=== PATIENT | male | born 1970 | race Caucasian/White ===

== ENCOUNTER 2022-08-29 08:13 | Outpatient (OUT) | payer OTHER, SELFPAY ==
[2022-08-29 08:36] LABS: Basophils Percent Auto 0.4 % (0.2-2.0); Eosinophils Absolute Auto 0.2 10^3/uL (0.0-0.7); Eosinophils Percent Auto 2.9 % (0.9-7.0); Hematocrit 47.4 % (42.0-54.0); Hemoglobin 16.1 g/dL (14.0-18.0); Immature Granulocytes Abs Auto 0.03 10^3/uL (0.00-0.03); Immature Granulocytes Pct Auto 0.4 % (0.0-0.5); Lymphocytes Percent Auto 28.3 % (20.5-60.0); Mean Corpuscular Hemoglobin 30.1 pg (25.9-34.0); Mean Corpuscular Volume 88.6 fL (80.0-94.0); Mean Platelet Volume 9.3 fL (9.5-13.5); Monocytes Absolute Auto 0.6 10^3/uL (0.3-0.8); Neutrophils Absolute Auto 4.3 10^3/uL (1.4-6.5); Platelet Count 199 10^3/uL (150-450); Red Blood Count 5.35 10^6/uL (4.70-6.10); Red Cell Distribution Width 12.8 % (11.0-15.0); White Blood Count 7.2 10^3/uL (4.0-11.0)
[2022-08-29 09:24] LABS: Alanine Aminotransferase 43 U/L (16-63); Albumin Globulin Ratio 1.1; Albumin Level 4.1 g/dL (3.4-5.0); Alkaline Phosphatase 58 U/L (46-116); Anion Gap 12.3; Aspartate Amino Transferase 22 U/L (15-37); BUN Creatinine Ratio 20.6; Bilirubin Total 3.3 mg/dL (0.2-1.0); Carbon Dioxide 30.5 mmol/L (21.0-32.0); Chloride 103 mmol/L (98-107); Chol HDL Ratio 5.4; Cholesterol 226 mg/dL (<=200); Estimated GFR (African America >60 (>=60); Estimated GFR (Non-African Ame >60 (>=60); Globulin 3.6 g/dL; Glucose 113 mg/dL (74-106); HDL Cholesterol 42 mg/dL (40-60); Potassium 3.8 mmol/L (3.5-5.1); Sodium 142 mmol/L (136-145); Total Protein 7.7 g/dL (6.4-8.2); Triglycerides 188 mg/dL (<=150); VLDL CHOLESTEROL 37.6 mg/dL
[2022-08-29 09:39] LABS: Prostate Specific Antigen Scrn 0.39 ng/mL (<=4.00)
== END 2022-08-29 08:14 ==
LOC: LAB 08:18
PROVIDERS: PCP Internal Medicine; Visit Provider Internal Medicine
DX: Z00.00 Encounter for general adult medical examination without abnormal findings (principal); Z12.5 Encounter for screening for malignant neoplasm of prostate
CPT/HCPCS: 36415; 80053; 80061; 85025; G0103

== ENCOUNTER 2022-09-14 12:00 | Outpatient (OUT) | payer OTHER, SELFPAY | END 2022-09-14 12:01 | disposition home or self-care (01) | LOC: PST 09-28 17:58 | PROVIDERS: PCP Internal Medicine | DX: Z01.818 Encounter for other preprocedural examination (principal); Z12.11 Encounter for screening for malignant neoplasm of colon ==

== ENCOUNTER 2022-09-20 07:26 | Day surgery (SDC) | payer OTHER, SELFPAY ==
--- NOTE | 2022-09-20 | OP_ITS ---
OPERATION DATE: ??09/20/2022 PREOPERATIVE DIAGNOSIS:? Colorectal screening. POSTOPERATIVE DIAGNOSIS:? 1.2 cm sigmoid polyp. PROCEDURE:? Colonoscopy to cecum with hot snare polypectomy x1 for sigmoid polyp. SURGEON:? Shantanu Harris M.D. ANESTHESIA:? Monitored anesthesia care. ESTIMATED BLOOD LOSS:? Less than 1 mL. INDICATIONS AND CONSENT:? Patient is a 52-year-old male presents for colorectal screening.? Indications, risks, benefits, alternatives of proceeding with colonoscopy were explained extensively to the patient, including the risks of bleeding, colon perforation or anesthetic complications.? All of his questions were answered.? Informed consent was obtained. PROCEDURE:? Patient brought to the operating room, placed in the left lateral decubitus position.? Monitored anesthesia care was provided.? Rectal exam was performed which showed no masses or blood.? The scope was inserted into the anal canal.? Under direct visualization was advanced.? With the aid of abdominal compression, it was advanced to the cecum where cecal markings were clearly identified.? Upon withdrawal of the scope, mucosal surfaces were carefully examined.? There was noted to be a good prep.? There no mass lesions or inflammatory changes.? No significant diverticulosis.? In the distal sigmoid, there was noted to be a 1.2 cm oblong, pedunculated, erythematous polyp.? This was removed in a piecemeal fashion with hot snare with good hemostasis.? The scope was retroflexed in the anal canal.? There was no significant hemorrhoidal disease.? Scope was then withdrawn.? Patient tolerated procedure well, was sent to recovery room in good condition. f/u colonoscopy likely in 3 years, but will depend on pathology results. CC:? Dandre Wong
[2022-09-20 07:42] VITALS: BP 175/124; PULSE 82; RESP 20; TEMP 36.6; O2SAT 98; BMI 37.1
[2022-09-20] MEDS: LACTATED RINGER'S SOLUTION 1,000 ML 50 ML IV (08:08)
[2022-09-20 09:26] VITALS: BP 112/73; PULSE 69; RESP 16; O2SAT 98
[2022-09-20 09:33] VITALS: BP 126/92; PULSE 71; RESP 16; O2SAT 94
[2022-09-20 09:45] VITALS: BP 138/10; PULSE 69; RESP 20; O2SAT 99
== END 2022-09-20 09:55 | disposition home or self-care (01) ==
PROVIDERS: PCP Internal Medicine; Visit Provider Surgery
PROC: (CPT 45385; principal; 2022-09-20 09:10)
DX: Z12.11 Encounter for screening for malignant neoplasm of colon (principal); D12.5 Benign neoplasm of sigmoid colon; I10 Essential (primary) hypertension; E78.00 Pure hypercholesterolemia, unspecified; G47.33 Obstructive sleep apnea (adult) (pediatric); E66.01 Morbid (severe) obesity due to excess calories; N40.0 Benign prostatic hyperplasia without lower urinary tract symptoms; Z68.39 Body mass index [BMI] 39.0-39.9, adult; Z90.49 Acquired absence of other specified parts of digestive tract
CPT/HCPCS: 45385; 88305; J2704

== ENCOUNTER 2023-03-01 08:09 | Outpatient (OUT) | payer OTHER, SELFPAY ==
[2023-03-01 09:12] LABS: Alanine Aminotransferase 40 U/L (16-63); Chol HDL Ratio 4.6; Cholesterol 190 mg/dL (<=200); HDL Cholesterol 41 mg/dL (40-60); Triglycerides 176 mg/dL (<=150); VLDL CHOLESTEROL 35.2 mg/dL
== END 2023-03-01 08:10 | disposition home or self-care (01) ==
LOC: LAB 08:13
PROVIDERS: PCP Internal Medicine; Visit Provider Internal Medicine
DX: E78.5 Hyperlipidemia, unspecified (principal)
CPT/HCPCS: 36415; 80061; 84460

== ENCOUNTER 2023-12-06 08:33 | Outpatient (OUT) | payer OTHER, SELFPAY ==
--- OUTSIDE RECORDS SUMMARY | 2023-12-06 08:54 | XMS_ITS | CCD ---
Author Organization [facility] Care Team Providers Care Managed Care Coordinator Name Role Phone BERNARDO OROZCO Unavailable Unavailable BALL, BERNARDO Unavailable Unavailable BALL, BERNARDO Unavailable Unavailable BALL, BERNARDO Unavailable Unavailable Ball, Bernardo Unavailable BERNARDO OROZCO Primary Care Physician BERNARDO OROZCO Referring Unavailable Shantanu HARRIS Attending Unavailable NILLShantanu Attending Unavailable Allergies Allergy Classification Reported Allergen(s) Allergy Type Date of Onset Reaction(s) Facility (2 sources) Bee/Wasp/Ant venom; Translations: [Bee Stings] Drug allergy Anaphylaxis (disorder) [facility] [place] (4 sources) patient allergy list reviewed by nurse or physicia Propensity to adverse reactions Comment:Done [employer] Other (1 source) No Known Medication Allergies; Translations: [No Known Medication Allergies] Propensity to adverse reactions (disorder) [facility] Repository Medications Current Medications Medication Drug Class(es) Dates Sig (Normalized) Sig (Original) amLODIPine 5 mg oral tablet (11 sources) Dihydropyridine Calcium Channel Ashely Start: 08-20-2023 take 1 tablet by mouth once daily Amlodipine Active 0 .ROUTE .COMPLEX 90 August 20, 2023 6:00pm Take 1 tablet by mouth once daily Start: 08-20-2023 End: 08-20-2023 take 5 mg by mouth once daily Amlodipine Discontinued 5 MG PO Daily 30 August 20, 2023 12:00am August 20, 2023 6:00pm Start: 08-16-2022 take 1 tablet by rebeca th once daily amLODIPine 5 mg Tab 5 mg = 1 tab(s), Oral, Daily, Refills(s) 0 Start Date: 08/16/22 Status: Ordered benazepril hydrochloride 40 mg oral tablet (11 sources) Angiotensin Converting Enzyme Inhibitor Start: 08-22-2023 take 1 tablet by mouth once daily Benazepril Active 0 .ROUTE .COMPLEX 90 August 22, 2023 12:51pm Take 1 tablet by mouth once daily for 90 days Start: 08-22-2023 End: 08-22-2023 take 40 mg by mouth once daily Benazepril Discontinued 40 MG PO Daily August 22, 2023 12:00am August 22, 2023 12:51pm Start: 08-16-2022 take 1 tablet by rebeca th once daily benazepril 40 mg oral tablet 40 mg = 1 tab(s), Oral, Daily, Refills(s) 0 Start Date: 08/16/22 Status: Ordered [id number] 0.3 ml EPINEPHrine 1 mg/ml auto-injector (4 sources) alpha-Adrenergic Agonist, beta-Adrenergic Agonist, Catecholamine Start: 10-04-2022 EpiPen 2-Anibal 0.3 MG/0.3ML as directed Injection once as needed for bee sting for 30 days Sep, Active hydrocortisone 10 mg/ml / neomycin 3.5 mg/ml / polymyxin b [id number] unt/ml otic suspension (8 sources) Aminoglycoside Antibacterial, Polymyxin-class Antibacterial, Corticosteroid Start: 08-09-2022 Neomycin-Polymyxi n-HC [id number] 4 drops into affected ear Otic qid for 7 days July, Active Completed/Discontinued Medications Medication Drug Class(es) Dates Sig (Normalized) Sig (Original) hydroCHLOROthiazide 25 mg oral tablet (5 sources) Thiazide Diuretic Start: 4 End: 4 take 25 mg by mouth once daily Hydrochlorothiazide Discontinued 25 MG PO Daily October 05, 2023 12:00am October 05, 2023 8:42am Start: 10-04-2022 take 1 tablet by rebeca th every twenty-four hours hydroCHLOROthiazide 25 MG 1 tablet in the morning Orally Once a day for 30 days Sep, Active Problems Active Problems Problem Classification Problem Date Documented Date Episodic/Chronic Allergic reactions (6 sources) Allergy to bee venom; Translations: [Bee allergy status] Episodic Disorders of lipid metabolism (20 sources) Mixed hyperlipidemia; Translations: [Hypercholesterolemia ] Onset: 02-13-2014 Chronic Diverticulosis and diverticulitis (4 sources) Diverticulosis of colon; Translations: [Diverticulosis of colon] Onset: 12-17-2017 Chronic Essential hypertension (20 sources) Essential (primary) hypertension; Translations: [Essential hypertension] Onset: 02-25-2018 Chronic Genitourinary symptoms and ill-defined conditions (1 source) Nocturia Episodic Hyperplasia of prostate (12 sources) Nocturia due to benign prostatic hypertrophy; Translations: [Benign prostatic hyperplasia with lower urinary tract symptoms] Chronic Other aftercare (1 source) 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; Translations: [OTH SKILLED NURSING CURRENT DRUG THERAPY] Onset: 02-28-2018 Episodic Other diseases of kidney and ureters (4 sources) Disorder of kidney and/or ureter; Translations: [Other specified disorders of kidney and ureter] Onset: 04-30-2016 Chronic Other ear and sense organ disorders (1 source) Acute reactive otitis externa, right ear Episodic Other liver diseases (4 sources) Steatosis of liver; Translations: [Fatty (change of) liver, not elsewhere classified] Chronic Other nutritional; endocrine; and metabolic disorders (5 sources) Body mass index 30+ - obesity; Translations: [Body mass index 36.0-36.9, adult] Onset: 05-09-2016 08-29-2022 Chronic Other nutritional; endocrine; and metabolic disorders (5 sources) Morbid obesity; Translations: [Morbid (severe) obesity due to excess calories] Onset: 05-09-2016 08-29-2022 Chronic Other nutritional; endocrine; and metabolic disorders (5 sources) Obesity; Translations: [Obesity, unspecified] 10-05-2023 Chronic Other nutritional; endocrine; and metabolic disorders (4 sources) Obese class II; Translations: [Body mass index 38.0-38.9, adult] Onset: 05-09-2016 Chronic Other nutritional; endocrine; and metabolic disorders (1 source) Obesity, unspecified; Translations: [Obesity, unspecified] 10-05-2023 Chronic Other screening for suspected conditions (not mental disorders or infectious disease) (8 sources) Encounter for screening for malignant neoplasm of prostate; Translations: [Encounter for screening for malignant neoplasm of colon] Onset: 03-10-2016 Episodic Residual codes; unclassified (14 sources) Obstructive sleep apnea syndrome; Translations: [Obstructive sleep apnea (adult) (pediatric)] 08-16-2022 Chronic Residual codes; unclassified (2 sources) Obstructive sleep apnea (adult) (pediatric); Translations: [Obstructive sleep apnea (adult)(pediatric)] Chronic Residual codes; unclassified (1 source) Family history of cancer of colon 08-25-2022 Episodic Unclassified (1 source) Patient encounter status 08-29-2022 Past or Other Problems Problem Classification Problem Date Documented Da te Episodic/Chronic Conditions associated with dizziness or vertigo (4 sources) Benign paroxysmal positional vertigo; Translations: [Benign paroxysmal positional vertigo] Onset: 12-17-2017 Episodic Other diseases of kidney and ureters (4 sources) Acquired renal cystic disease; Translations: [Cyst of kidney, acquired] Onset: 05-09-2016 Episodic Other liver diseases (4 sources) Large liver; Translations: [Hepatomegaly, not elsewhere classified] Onset: 04-30-2016 Episodic Other skin disorders (4 sources) Eruption; Translations: [Rash and other nonspecific skin eruption] Onset: 02-06-2018 Episodic Other skin disorders (4 sources) Sebaceous cyst; Translations: [Sebaceous cyst] Onset: 02-06-2018 Episodic Unclassified (4 sources) Long-term current use of drug therapy; Translations: [Long-term (current) use of other medications] Onset: 08-14-2017 Results Test Name Value Interpretation Reference Range Facil ity Reminderson 08-22-2023 Reminders - From: Malorie Davalos LPN To: N - Clinical; Sent: 10/10/2022 14:42:04 EDT Show up: 08/22/2023 07:00:00 EDT Subject: colonoscopy recall Due Date/Time: 09/21/2023 07:00:00 EDT Reminder/Recall Patient due for surveillance colonoscopy 09/21/2023. Patient notified repeat colonoscopy is due. He declined to schedule at this time. Verbalized he will call back after he determines his work schedule. Normal [facility] Pathology Noteon 09-29-2022 Pathology Note [id number] #1.00CD:127 Normal [facility] Outside Colonoscopyon 2022 Outside Colonoscopy [id number] #1.00CD:127 Normal [facility] Consent for Procedure/Surger yon 08-30-2022 Consent for Procedure/Surgery [id number]# 1.00CD:127 Normal [facility] Ambulatory Visit Summaryon 0 08-29-2022 Ambulatory Visit Summary FLORA JAMES :1970 Visit Date:08/29/2022 Ambulatory Visit Instructions Your Diagnosis Screening for malignant neoplasm of colon Your Care Team Attending Physician - TIA PETE, Shantanu Burr Primary Care Physician - BERNARDO OROZCO DO Referring Physician - BERNARDO OROZCO DO This Is Your Medications List Contact prescribing physician if questions or concerns amlodipine (amLODIPine 5 mg Tab) benazepril (benazepril 40 mg oral tablet) Procedures Performed Cholecystectomy (2016), Colonoscopy (2009), Excision of cyst, Excision of dermatofibroma. Discharge Vitals Heart Rate (Peripheral) 76 Respiratory Rate 16 Blood Pressure 150/98 Height 193 cm Height 76 in Weight 147 kg Weight 323.4 lb BMI 39.46 Medications What How Much When Instructions Unchanged amlodipine (amLODIPine 5 mg Tab) 1 Tablets By Mouth Every day Contact prescribing physician if questions or concerns Unchanged benazepril (benazepril 40 mg oral tablet) 1 Tablets By Mouth Every day Contact prescribing physician if questions or concerns Allergies Bee Stings (Anaphylaxis) Problems Ongoing - Any problem that you are currently receiving treatment for. BMI 39.0-39.9,adult BPH (benign prostatic hyperplasia) Essential hypertension Family history of colon cancer Hypercholesterolemia Morbid obesity EULALIO (obstructive sleep apnea) Screening for malignant neoplasm of colon Normal [facility] HERPES SIMPLEX 1/2 IGMon HSV, IgM I/II Combination 1.34 Ratio Critically high 0.00-0.90 [facility] Comment on above: Result Comment: Nega tive <0.91 Equivocal 0.91 - 1.09 Positive >1.09 Performed By: #### H SVIGM ####[facility] [address] [place] [id number] [place] HERPES SIMPLEX 1/2 IGGon HSV 1 IgG, Type Spec 16.60 index Critically high 0.00-0.90 [facility] Comment on above: Result Comment: Nega tive <0.91 Equivocal 0.91 - 1.09 Positive >1.09 Note: Negative indicates no antibodies detected to HSV-1. Equivocal may suggest early infection. If clinically appropriate, retest at later date. Positive indicates antibodies detected to HSV-1. Performed By: #### H SV IGG ####[facility] [address] [place], [place] [address]Trbthr [place] HSV 2 IgG Type Spec 10.10 index Critically high 0.00-0.90 [facility] Comment on above: Result Comment: Nega tive <0.91 Equivocal 0.91 - 1.09 Positive >1.09 Note: Negative indicates no antibodies detected to HSV-2. Equivocal may suggest early infection. If clinically appropriate, retest at later date. Positive indicates antibodies detected to HSV-2. Performed By: #### H SV IGG ####[facility] Cfbpvs[address]os[address] [place], [place] [address]Zglmnm [place] LIPID PROFILEon 02-25-2018 CHOL-HDL RATIO NORM SEE BELOW Normal [facility] Comment on above: Result Comment: 3.3 - 4.4 LOW RISK 4.4 - 7.1 AVERAGE RISK 7.1 - 11.0 MODERATE RISK >11.0 HIGH RISK Performed By: #### A ST, LIPID, BMP, ALT ####[facility] [address]zven[address] [place], [place] [address]Vpgcoc [place] Cholesterol in HDL mass conc > or = 60 mg/dl - LOW CARDIOVASCULAR RISK <40 mg/dl - HIGH CARDIOVASCULAR RISK Normal [facility] Comment on above: Performed By: #### A ST, LIPID, BMP, ALT ####[facility] [address]sds[address] [place], [place] [address]Vduzxu [place] Cholesterol in HDL mass conc 37 mg/dL Normal [facility] Comment on above: Performed By: #### A ST, LIPID, BMP, ALT ####[facility] Cwydf[address]wp[address] [place], [place] [address]Jpkpiw [place] Cholesterol in LDL mass conc 119.0 mg/dL Normal [facility] Comment on above: Performed By: #### A ST, LIPID, BMP, ALT ####[facility] Pvbsvaledu[address] [place] Cholesterol in LDL mass conc SEE BELOW Normal [facility] Comment on above: Result Comment: <100 mg/dl OPTIMAL 100 - 129 mg/dl NEAR OR ABOVE OPTIMAL 130 - 159 mg/dl BORDERLINE HIGH 160 - 189 mg/dl HIGH >190 mg/dl VERY HIGH Performed By: #### A ST, LIPID, BMP, ALT ####[facility] Hxivkmurvb7118 [address] [place] Cholesterol mass conc 216 mg/dL Critically high <=200 [facility] Comment on above: Performed By: #### A ST, LIPID, BMP, ALT ####[facility] Dwjkhdqlqy[address] [place] Cholesterol.total/Ch olesterol in HDL mass ratio 5.8 {ratio} Normal [facility] Comment on above: Performed By: #### A ST, LIPID, BMP, ALT ####[facility] Wewwwqcaue6342 [address] [place] Triglyceride mass conc 300 mg/dL Critically high <=150 [facility] Comment on above: Performed By: #### A ST, LIPID, BMP, ALT ####[facility] Lrbvhydqsu7971 [address] [place] VLDL CALC 60.0 mg/dL Normal [facility] Comment on above: Performed By: #### A ST, LIPID, BMP, ALT ####[facility] Vidkraizut[address]476 [address] [place] PROF CHEM 8 (BAS METB)on Anion gap 3 molar conc 13.0 mmol/L Normal [facility] Comment on above: Performed By: #### A ST, LIPID, BMP, ALT ####[facility] Maycnijssy[address] [place] Calcium mass conc 9.1 mg/dL Normal 8.4-10.2 [facility] Comment on above: Performed By: #### A ST, LIPID, BMP, ALT ####[facility] Uaouymmjnq[address] [place] Chloride molar conc 101 mmol/L Normal 98-107 [facility] Comment on above: Performed By: #### A ST, LIPID, BMP, ALT ####[facility] Vjexjvjmiq[address] [place] [id number] [place] CO2 molar conc 31.3 mmol/L Critically high 22.0-30.0 [facility] Comment on above: Performed By: #### A ST, LIPID, BMP, ALT ####[facility] Uipluognny17[address] [place] Creatinine mass conc 0.90 mg/dL Normal 0.66-1.25 [facility] Comment on above: Performed By: #### A ST, LIPID, BMP, ALT ####[facility] Mhwgngzbam7334 [address] [place] EGFR-AF PAKISTANI >60 Normal >=60 [facility] Comment on above: Performed By: #### A ST, LIPID, BMP, ALT ####[facility] Jstyqvenyt[address] [place] [id number] [place] EGFR-NON AF PAKISTANI >60 Normal >=60 [facility] Comment on above: Performed By: #### A ST, LIPID, BMP, ALT ####[facility] Vzqauygeip[address] [place] Glucose mass conc 110 mg/dL Critically high 74-106 [facility] Comment on above: Performed By: #### A ST, LIPID, BMP, ALT ####[facility] Ouatmzrufe[address] [place] Potassium molar conc 3.3 mmol/L Critically low 3.4-5.0 [facility] Comment on above: Performed By: #### A ST, LIPID, BMP, ALT ####[facility] Qnqbplxiae1993 [address] [place] Sodium molar conc 142 mmol/L Normal 137-145 [facility] Comment on above: Performed By: #### A ST, LIPID, BMP, ALT ####[facility] Aacpqagkko0209 [address] [place] Urea nitrogen mass conc 12.0 mg/dL Normal 9.0-20.0 [facility] Comment on above: Performed By: #### A ST, LIPID, BMP, ALT ####[facility] Wewecgqrje7245 [address] [place] Urea nitrogen/Creatinine mass ratio 13.3 mg/mg Normal [facility] Comment on above: Performed By: #### A ST, LIPID, BMP, ALT ####[facility] Ripadcuckj[address] [place] SGOTon 02-25-2018 AST enzyme act/vol 35 U/L Normal 17-59 [facility] Comment on above: Performed By: #### A ST, LIPID, BMP, ALT ####[facility] [address] [place] [address] [place] SGPTon 02-25-2018 ALT enzyme act/vol 64 U/L Normal 21-72 [facility] Comment on above: Performed By: #### A ST, LIPID, BMP, ALT ####[facility] Lsgmhfbbuw54[address] [place] UA (CLEAN/CATCH) PUBLIC EMPLOYMENT MEDIATOR/MICRO I F IND.on 02-25-2018 BILIRUBIN Negative Normal NEGATIVE [facility] Comment on above: Performed By: #### U BERNABE UMICRO ####[facility] [address] [place] [address] [place] BLOOD TRACE-LYSED Normal NEGATIVE [facility] Comment on above: Performed By: #### U ACSMICHELLE UMICRO ####[facility] Pdswxuwuoy7562 [address] [place] CLARITY CLEAR Normal [facility] Comment on above: Performed By: #### U ACSMICHELLE UMICRO ####[facility] Gdwbowrcui6499 [address] [place] COLOR LT. YELLOW Normal YELLOW [facility] Comment on above: Performed By: #### U ACSMICHELLE UMICRO ####[facility] Fkmnklnwut[address] [place] GLUCOSE Negative Normal NEGATIVE [facility] Comment on above: Performed By: #### U BERNABE UMICRO ####[facility] Qnolatquoe4937 [address] [place] KETONES Negative Normal NEGATIVE [facility] Comment on above: Performed By: #### U BERNABE UMICRO ####[facility] Lplatjhuiz[address] [place] LEUKOCYTES Negative Normal NEGATIVE [facility] Comment on above: Performed By: #### U BERNABE UMICRO ####[facility] Yzabhilxsx[address] [place] NITRITE Negative Normal NEGATIVE [facility] Comment on above: Performed By: #### U BERNABE UMICRO ####[facility] Zsfwysbfyx[address]331 [address] [place] pH 7.0 Normal 5-9 [facility] Comment on above: Performed By: #### U BERNABE UMICRO ####[facility] Dqfvlyjncx[address]262 [address] [place] PROTEIN TRACE Normal [facility] Comment on above: Performed By: #### U BERNABE UMICRO ####[facility] Oldjdtdojb[address]54 [address] [place] SPEC GRAVITY 1.015 Normal 1.005-<=1.025 [facility] Comment on above: Performed By: #### U BERNABE UMICRO ####[facility] Kustjzwkkc[address] [place] UR MICRO IND INDICATED Normal [facility] Comment on above: Performed By: #### U BERNABE UMICRO ####[facility] Xbqncheddb0[address] [place] UROBILINOGEN 0.2 EU/dl Normal [facility] Comment on above: Performed By: #### U BERNABE UMICRO ####[facility] Sebpcghufu[address] [place] URINE MICROSCOPIC ONLYon BACTERIA TRACE Normal NONE SEEN [facility] Comment on above: Performed By: #### U PERRY KIDDRO ####[facility] [address] [place], [place] [address]Frfpoh [place] CAST NONE SEEN Normal NONE SEEN [facility] Comment on above: Performed By: #### PERRY RORO ####[facility] [address]ks[address] [place], [place] [address]Ugltgj [place] CRYSTALS NONE SEEN Normal NONE SEEN [facility] Comment on above: Performed By: #### U PERRY KIDDRO ####[facility] [address]mt[address]so[address] [place] [id number] CULTURE NOT INDICATED Normal [facility] Comment on above: Performed By: #### PERRY RORO ####[facility] Yxifieehhn[address] [place] [id number] EPITHELIAL CELLS RARE Normal [facility] Comment on above: Performed By: #### PERRY RORO ####[facility] [address]vr[address] [place], [place] [address]Zkzeom [place] INR Coag RelTime (Bld) 2-5 Normal 0-2 [facility] Comment on above: Performed By: #### PERRY RORO ####[facility] K[address]vy[address] [place], [place] [address]Sfnfxa [place] MUCOUS TRACE Normal NONE SEEN [facility] Comment on above: Performed By: #### PERRY RORO ####[facility] [address] [place], [place] [address]Zzedof [place] WBC 2-5 Normal NONE SEEN [facility] Comment on above: Performed By: #### PERRY RORO ####[facility] [address] [place], [place] [address]Kiakif [place] Vital Signs Date Time Vital Sign Value Performing Clinician Facility 10-05-2023 08:42-0400 Body height 195.58 cm [facility] 10-05-2023 08:42-0400 Body mass index (BMI) [Ratio] 37.1 kg/m2 [facility] 10-05-2023 08:42-0400 Body weight 142.03 kg [facility] 10-05-2023 08:42-0400 Diastolic blood pressure 89 mm[Hg] [facility] 10-05-2023 08:42-0400 Heart rate 76 /min [facility] 10-05-2023 08:42-0400 Respiratory rate 12 /min [facility] 10-05-2023 08:42-0400 Systolic blood pressure 139 mm[Hg] [facility] 08-29-2022 13:09-0400 Blood Pressure Location [facility]antanu [facility] [place] 08-29-2022 13:09-0400 Diastolic blood pressure 98 mm[Hg] Shantanu NILL [facility] 08-29-2022 13:09-0400 Heart rate 76 /min Shantanu NILL [facility] 08-29-2022 13:09-0400 Respiratory rate 16 /min Shantanu NILL [facility] 08-29-2022 13:09-0400 Systolic blood pressure 150 mm[Hg] Shantanu NILL [facility] 08-09-2022 09:00-0400 Body height 193.04 cm Bernardo Ball Other [employer] [facility] [place] Other 08-09-2022 09:00-0400 Body mass index (BMI) [Ratio] 39.17 kg/m2 Bernardo Ball Other [employer] [facility] [place] Other 08-09-2022 09:00-0400 Body weight 145.97 kg Bernardo Ball Other [facility] [place] Other 08-09-2022 09:00-0400 Diastolic blood pressure 134 mm[Hg] Bernardo Ball Other [employer] [facility] Other 08-09-2022 09:00-0400 Respiratory rate 12 /min Bernardo Orozco Other [employer] Other 08-09-2022 09:00-0400 Systolic blood pressure 186 mm[Hg] Bernardo Orozco Other [employer] Other Encounters Encounter Date Encounter Type Care Provider Facility Start: 10-05-2023 End: 10-05-2023 ambulatory [facility] Work Phone: Start: 10-05-2023 End: 10-05-2023 Encounter for general adult medical examination without abnormal findings [facility] Start: 10-05-2023 End: 10-05-2023 Patient encounter procedure [facility] Work Phone: Start: 03-02-2023 End: 03-02-2023 ambulatory Bernardo Orozco Other [employer] Other Start: 03-02-2023 Telephone encounter Bernardo Orozco [facility] Start: 10-04-2022 End: 10-04-2022 ambulatory Bernardo Orozco Other [employer] Other Start: 10-04-2022 Telephone encounter Bernardo Orozco [facility] Start: 09-20-2022 End: 09-20-2022 ambulatory Shantanu HARRIS Facility:CD:[id number] Start: 08-30-2022 End: 08-30-2022 ambulatory Bernardo Orozco Other [employer] Other Start: 08-30-2022 Telephone encounter Bernardo Orozco [facility] Start: 08-29-2022 End: 08-29-2022 ambulatory BERNARDO OROZCO Facility: [facility] Start: 08-29-2022 End: 08-29-2022 Patient encounter procedure Shantanu HARRIS [facility] [place] Start: 08-09-2022 End: 08-09-2022 ambulatory Bernardo Orozco Other [employer] Other Start: 08-09-2022 Encounter for chanelle l adult medical examination without abnormal findings Bernardo Orozco [facility] Start: 08-09-2022 Periodic preventive med est patient 40-64yrs Bernardo Orozco [facility] Start: 08-09-2022 Telephone encounter eBrnardo Orozco [facility] Start: 06-09-2021 Adult health examination Bernardo Orozco Other [employer] Other Start: 02-25-2018 End: 02-26-2018 Patient encounter procedure BERNARDO OROZCO Facility:H1 Procedures Date Procedure Procedure Detail Performing Clinician Start: 03-12-2016 Cholecystectomy Shantanu JOSEPHL Start: 01-06-2015 General examination of patient Bernardo Orozco Other Start: 03-12-2009 Colonoscopy Shantanu DICKERSON LL Depression screening Erica Orozco Other Excision of cyst Shantanu JOSEPH L Comment on above: posterior neck Excision of dermatofibroma M ichmiriam JOSEPHL Comment on above: left upper extremity , shoulder, right thigh Plan of Treatment Date Care Activity Detail Author Comprehensive metabo lic 2000 panel - Serum or Plasma [facility] enter [facility] Immunizations Immunization Date Immunization Notes Care Provider Erwin lennon 06-27-2020 COVID-19 Vaccine Pfi zer - Documentation Purposes Only Bernardo Orozco Other [facility] 06-06-2020 COVID-19 Vaccine Pfi zer - Documentation Purposes Only Bernardo Orozco Other [facility] Payers Date Payer Category Payer Unknown [id number] 1972 Unknown [id number] 1972 Unknown [id number] 1972 Unknown [id number] 1959 Unknown [id number] [facility] Health [facility] [employer] [id number] Unknown [id number] Social History Date Type Detail Facility Sex Assigned At [facility] Start: 08-29-2022 Tobacco smoking status Never s moked tobacco (finding) [facility] Tobacco smoking status Never [facility] Start: 1970 Sex Assigned At Male F [facility] Functional Status Date Assessment Result Facility 08-29-2022 Functional Status N/A [facility] Clinical Notes 08-09-2022 to 10-04-2022 Note Date & Type Note Facility 10-04-2022 Evaluation note Encounter Date Diagnosis Assessment Notes Sep, Bee sting allergy (ICD-10 - Z91.030) [facility] Other 07-26-2023 Evaluation note* Encounter Date Diagnosis Assessment Notes Treatment Notes Treatment Clinical Notes Sep, Primary hypertension (ICD-10 - I10) [facility] Other 06-20-2023 NoteChief Complaint consultation for screening colonoscopy [facility] Staff 52 year old male presents on consultation from Dr. Orozco for screening colonoscopy. Denies abdominalor rectal pain. No rectal bleeding or change in bowel habits. Denies nausea or vomiting. No unexplained weight loss. Last colonoscopy completed 08/2009-normal. Father with history of colon cancer, diag nosed age late 40's. History of Present Illness 52 yo male with h/o htn, hypercholesterolemia, bph, EULALIO, referred for colorectal screening; denies change in bms or blood in stools, no abd complaints; abd operations significant for cholecystectomy;last colonoscopy 2009, wnl; no asa or NSAID use; no SBE prophylaxis; fmhx of colon cancer in patient's father, dx before age 50, no fmhx of IBD; no tobacco use. Review of Systems PHQ Score Initial Depression Screen Score: 0 ROS - Provider Constitutional: no fever, no sweats, no weight loss. Eyes: no glasses, no blurred vision, no visual loss. ENMT: no dentures, no hoarseness, no swallowing difficulties, no hearing loss, no ear infection(s),no nose bleeds. Cardiovascular: normal blood pressure, no chest pain, regular heartbeat, no heart murmur. Respiratory: no shortness of breath, no cough, no asthma, no wheezing. Gastrointestinal: no nausea, no vomiting, no diarrhea, no constipation, no blood in stool, no change in bowel habits, no abdominal pain, no hepatitis. Genitourinary: no kidney stones, no urine infection, no dysuria. Musculoskeletal: no pain, no weakness. Skin: no changing moles, no rash, no skin lumps. Neurologic: no seizures, no epilepsy, no headache. Psychiatric: no emotional or psychiatric problem. Heme/Lymph: no bleeding problems, no anemia, no blood clots, no transfusions. Allergy/Immunologic: no swollen lymph nodes/glands, no IV drug abuse. Other: Additional ROS info: Except as noted in the above Review of Systems and in the History of Present Illness, all other systems have been reviewed and are negative or noncontributory. Physical Exam Vitals & Measurements HR: 76(Peripheral) RR: 16 BP: 150/98 HT: 76 in HT: 193 cm WT: 147 kg WT: 323.4 lb BMI: 39.46 HEENT: normal conjunctiva, sclera clear, no scleral icterus, EOM intact, PERRLA, oral mucosa moist without lesions. Neck: trachea midline, no mass, symmetric, no thyromegaly or nodules, no adenopathy Respiratory: lungs CTA, respirations non labored. Cardiovascular: regular rate and rhythm, no murmur, no pedal edema or varicosities. Gastrointestinal: obese, soft, non distended, no tenderness, no masses, no palpable hernias, diastasis recti no, no hepatosplenomegaly; normal bs Lymphatic: no cervical adenopathy, no supraclavicular adenopathy. Musculoskeletal: normal gait, digits and nails without infection, nodes, cyanosis, clubbing. Skin: no rashes, no lesions, no ulcers, no subcutaneous nodules, induration. Psychiatric/Neuro: oriented to time, place, person, judgement normal, affect appropriate for age, insight intact, no focal deficits. Tests: review of old records completed, Discussed surgical options, risks, and possible complications with patient. Assessment/Plan 1. Screening for malignant neoplasm of colon (Z12.11: Encounter for screening for malignant neoplasm of colon) plan colonoscopy under anesthesia, informed consent obtained. Follow-up No qualifying data available Problem List/Past Medical History Ongoing BMI 39.0-39.9,adult BPH (benign prostatic hyperplasia) Essential hypertension Family history of colon cancer Hypercholesterolemia Morbid obesity EULALIO (obstructive sleep apnea) Screening for malignant neoplasm of colon Historical No qualifying data Procedure/Surgical History Cholecystectomy (2016), Colonoscopy (2009), Excision of cyst, Excision of dermatofibroma. Medications amLODIPine 5 mg Tab, 5 mg= 1 tab(s), Oral, Daily benazepril 40 mg oral tablet, 40 mg= 1 tab(s), Oral, Daily Allergies Bee Stings (Anaphylaxis) Social History Alcohol - Denies Alcohol Use, 08/29/2022 Substance Abuse - Denies Substance Abuse, 08/29/2022 Tobacco Never (less than 100 in lifetime) Tobacco Use:. Never Smokeless Tobacco Use:., 08/29/2022 Family History Hypertension: Mother. Primary malignant neoplasm of colon: Father[facility]:Result Comment: Electronically Signed By: TIA PETE, Shantanu Lackey\Date and Time Signed: 08/29/22 13:49 [id number] Evaluation note* Encounter Date Diagnosis Assessment Notes Treatment Notes Treatment Clinical Notes July, Primary hypertension (ICD-10 - I10) This patient is instructed to consume a healthy, low-fat, low-salt diet. They are also encouraged to continue exercise to achieve/maintain a normal BMI. Patient is instructed on home BP measurements: - rest for 5 minutes w/o talking- positioned w/ feet on floor and arm supported- average best 2/3 readings w/ goal < 135-85 July, Wellness examination (ICD-10 - Z00.00) Healthy diet and exercise. Reviewed age-appropriate preventive testing recommended. July, Elevated cholesterol (ICD-10 - E78.00) Instructed on diet and exercise with continued statin therapy.Discussed the beneficial effects of lowering cholesterol in reducing the risk for cerebrovascular and cardiovascular disease. July, EULALIO (obstructive sleep apnea) (ICD-10 - G47.33) This patient is aware of the benefits associated with EULALIO: With continued use, the patient reduces the risk for WA, CVA, HTN, cardiac dysrhythmias and sudden cardiac deaths.The patient is also aware of the association between EULALIO and morning headaches, daytime somnolence, fatigue and obesity, which also has been improved with continued use.The patient is compliant with treatment, wearing the equipment every night for greater than 4 hours.The patient is instructed to continue use of the CPAP for EULALIO treatment. July, Benign prostatic hyperplasia with lower urinary tract symptoms (ICD-10 - N40.1) Symptoms tolerable July, Nocturia (ICD-10 - R35.1) July, Screening PSA (prostate specific antigen) (ICD-10 - Z12.5) Yearly RUBI and PSA July, Screening for colon cancer (ICD-10 - Z12.11) Refer for screening colonoscopy [facility] Other 05-31-2023 Evaluation note* Encounter Date Diagnosis Assessment Notes Treatment Notes Treatment Clinical Notes July, Acute reactive otitis externa of right ear (ICD-10 - H60.551) [facility] Other 05-31-2023 Evaluation note* Encounter Date Diagnosis Assessment Notes Treatment Notes Treatment Clinical Notes July, Primary hypertension (ICD-10 - I10) [facility] Other Evaluation + Plan note No data available for this section [facility] Evaluation noteNo InformationNort [place] Other Evaluation note* Diagnosis Onset Date Resolution Status Benign prostatic hyperplasia with lower urinary tract symptoms acute Hypercholesterolemia acute Hypertension acute Obesity acute EULALIO (obstructive sleep apnea) acute Screening PSA (prostate specific antigen) noneactive Wellness examination noneact [facility] Work Phone: History general Narrative - Reported* Type Description Date Medical History Primary hypertension Medical History Benign prostatic hyp erplasia with lower urinary tract symptoms Medical History Obstructive sleep apnea Medical History Elevated cholesterol Surgical History COLONOSCOPY 2009 Surgical History CHOLECYSTECTOMY 2017 Hospitalization History SEE SURGICAL HX [facility] Other History general Narrative - Reported* Type Description Date Medical History Primary hypertension Medical History Benign prostatic hyp erplasia with lower urinary tract symptoms Medical History Obstructive sleep apnea Medical History Elevated cholesterol Surgical History COLONOSCOPY 2009 Surgical History CHOLECYSTECTOMY 2017 Surgical History Colonoscopy w/ polypectomy, rep eat 3 yrs 09/2022 Hospitalization History SEE SURGICAL HX [facility] Other Hospital Discharge instructions No data available for this section [facility] Progress note No data available for this section [facility] Reason for referral (narrative)* Reason *FU 08/16 Referral for screening colonoscopy Diagnosis 1 Screening for colon cancer (Z12.11) Referral Organization [facility] Referring Provider First Name Bernardo Referring Provider Last Name Ernesto Referring Provider Specialty Internal Me dicveronique Referred Organization [facility] Referred Provider Shantanu Harris Referred Address [address] [place], [place],[address] Referred Provider Specialty Surgery Referral Priority Routine General Notes Referral for screeni ng colonoscopy in an asymptomatic, high risk patient. He denies change in appetite, weight or bowel habits. He denies N/V, dysphagia, melena or hematochezia. Isabel Krishnamurthy 08/09/2022 02:38:29 PM >received today, attachments made, referral faxed Clinical Notes F: [id number] [facility] Other Summary Purpose Family History Relationship Condition Age at Onset Recorded Date/T benedicto mother Hypertension Unknown High blood cholesterol Unknown Advance Directives Advance Directive Response Recorded Date/ Time Advance Directives No October 04 8:28am Chief Complaint and Reason for Visit Chief Complaint wellness Reason for Visit Benign prostatic hyp erplasia with lower urinary tract symptoms Hypercholesterolemia Hypertension Obesity EULALIO (obstructive sleep apnea) Screening PSA (prostate specific antigen) Wellness examination Additional Source Comments (unrecognized sect ion and content) No Status Records FoundNo Status Records Found INFORMATION SOURCE (unrecogn ized section and content) DATE CREATED AUTHOR 03/03/2018 [facility] DATE CREATED AUTHOR AUTHOR'S ORGANIZ ATION 08/23/2023 [facility] REASON FOR VISIT (unrecogniz ed section and content) wellnessATBRefillLab Results No InformationNo InformationBP readings/EPI penslabs Patient Care team informatio n (unrecognized section and content) Team Status: Active Member Role Status Dates Bernardo Orozco , Primary Care Provider Active Team Status: Inactive Member Role Status Dates Bernardo Orozco DO Primary Care Provide r, Attending Provider Active Start: October 05, 2023 End: October 05, 2023 Goals (unrecognized section and content) Goals may be documented in a n alternate section FOR RECORDS PERTAINING TO PATIENTS WHO ARE OR HAVE BEEN ENROLLED IN A CHEMICAL DEPENDENCY/SUBSTANCEABUSE PROGRAM, SOME INFORMATION MAY BE OMITTED. This clinical summary was aggregated from multiple sources. Caution should be exercised in using it in the provision of clinical care. This summary normalizes information from multiple sources, and as a consequence, information in this document may materially change the coding, format and clinical context of patient data. In addition, data may be omitted in some cases. CLINICAL DECISIONS SHOULD BE BASED ON THE PRIMARY CLINICAL RECORDS. [facility] [employer] [facility]. provides no warranty or guarantee of the accuracy or completeness of information in this document.
[2023-12-06 09:28] LABS: Basophils Percent Auto 0.3 % (0.2-2.0); Eosinophils Absolute Auto 0.2 10^3/uL (0.0-0.7); Eosinophils Percent Auto 2.2 % (0.9-7.0); Hematocrit 46.9 % (42.0-54.0); Immature Granulocytes Abs Auto 0.02 10^3/uL (0.00-0.03); Immature Granulocytes Pct Auto 0.3 % (0.0-0.5); Lymphocytes Absolute Auto 2.1 10^3/uL (1.2-3.8); Mean Corpuscular HGB Conc 34.1 g/dL (29.9-35.2); Mean Corpuscular Hemoglobin 30.8 pg (25.9-34.0); Mean Corpuscular Volume 90.2 fL (80.0-94.0); Monocytes Absolute Auto 0.7 10^3/uL (0.3-0.8); Monocytes Percent Auto 8.9 % (1.7-12.0); Neutrophils Absolute Auto 4.6 10^3/uL (1.4-6.5); Neutrophils Percent Auto 60.3 % (43.0-75.0); Platelet Count 221 10^3/uL (150-450); Red Cell Distribution Width 12.7 % (11.0-15.0); White Blood Count 7.6 10^3/uL (4.0-11.0)
[2023-12-06 10:32] LABS: Alanine Aminotransferase 34 U/L (16-63); Albumin Globulin Ratio 1.2; Albumin Level 4.2 g/dL (3.4-5.0); Alkaline Phosphatase 55 U/L (46-116); Anion Gap 7.2; Aspartate Amino Transferase 25 U/L (15-37); BUN Creatinine Ratio 22.2; Bilirubin Total 5.4 mg/dL (0.2-1.0); Calcium 9.5 mg/dL (8.5-10.1); Carbon Dioxide 34.1 mmol/L (21.0-32.0); Chloride 100 mmol/L (98-107); Cholesterol 189 mg/dL (<=200); Estimated GFR (African America >60 (>=60); Estimated GFR (Non-African Ame >60 (>=60); Globulin 3.4 g/dL; Glucose 104 mg/dL (74-106); HDL Cholesterol 44 mg/dL (40-60); Potassium 3.3 mmol/L (3.5-5.1); Sodium 138 mmol/L (136-145); Total Protein 7.6 g/dL (6.4-8.2); Triglycerides 117 mg/dL (<=150); VLDL CHOLESTEROL 23.4 mg/dL
[2023-12-06 10:46] LABS: Prostate Specific Antigen Scrn 0.43 ng/mL (<=4.00)
[2023-12-06 11:28] LABS: Chol HDL Ratio 4.3
== END 2023-12-06 08:34 | disposition home or self-care (01) ==
LOC: LAB 08:37
PROVIDERS: PCP Internal Medicine; Visit Provider Internal Medicine
DX: Z00.00 Encounter for general adult medical examination without abnormal findings (principal)
CPT/HCPCS: 36415; 80053; 80061; 85025; G0103

== ENCOUNTER 2024-06-10 13:05 | Outpatient (OUT) | payer OTHER, SELFPAY | END 2024-06-10 13:06 | disposition home or self-care (01) | LOC: PST 13:06 | PROVIDERS: PCP Internal Medicine; Visit Provider Surgery | DX: Z01.818 Encounter for other preprocedural examination (principal); Z86.0101 Personal history of adenomatous and serrated colon polyps ==

== ENCOUNTER 2024-06-18 06:29 | Day surgery (SDC) | payer OTHER, SELFPAY ==
--- NOTE | 2024-06-18 | OP_ITS ---
OPERATION DATE: 06/18/2024 PREOPERATIVE DIAGNOSIS: Personal history of colon polyps, family history of colon cancer. POSTOPERATIVE DIAGNOSIS: Sigmoid polyps x2; 5 mm proximal sigmoid polyp and 7 mm distal sigmoid polyp. PROCEDURE: Colonoscopy to cecum with cold snare polypectomy x1 for proximal sigmoid polyp, and hot snare polypectomy x1 for distal sigmoid polyp. Proximal polyp was 5 mm, distal polyp 7 mm. SURGEON: Shantanu Harris M.D. ANESTHESIA: Monitored anesthesia care. INDICATIONS AND CONSENT: Patient is a 54-year-old male with a personal history of villoglandular polyp removed in September of 2022, also a family history of colon cancer in his father, diagnosed in his 40s. Indications, risks, benefits, alternatives of proceeding with surveillance colonoscopy were explained extensively to the patient, including the risks of bleeding, colon perforation or anesthetic complications. All of his questions were answered. Informed consent was obtained. PROCEDURE: Patient brought to the operating room, placed in the left lateral decubitus position. Monitored anesthesia care was provided. Rectal exam was performed which showed no masses or blood. The scope was inserted into the anal canal. Under direct visualization was advanced. It was advanced to the cecum where cecal markings were clearly identified. There was noted to be a good prep. Upon withdrawal of the scope, mucosal surfaces were carefully examined. There were no mass lesions or inflammatory changes. No significant diverticulosis. In the proximal sigmoid colon, there was noted to be a 5 mm sessile polyp that was removed with cold snare with good hemostasis. In the distal sigmoid, there was noted to be a lobulated, 7 mm sessile polyp that was removed with hot snare with good hemostasis. The scope was retroflexed in the anal canal. There was no significant hemorrhoidal disease. There were noted to be some prominent rectal veins. Scope was then withdrawn. Patient tolerated procedure well, was sent to recovery room in good condition. Follow up colonoscopy likely in 1-3 years, depending on pathology report. CC: Dr. Ernesto KEMP
--- OUTSIDE RECORDS SUMMARY | 2024-06-18 06:31 | XMS_ITS | CCD ---
Author Organization [facility] Care Team Providers Care Ep Specialist Name Role Phone BERNARDO PONCE Unavailable Unavailable BALL, BERNARDO Unavailable Unavailable BALL, BERNARDO Unavailable Unavailable BALL, BERNARDO Unavailable Unavailable Ball, Bernardo Unavailable BERNARDO PONCE Primary Care Physician Shantanu HARRIS Attending Unavailable Allergies Allergy Classification Reported Allergen(s) Allergy Type Date of Onset Reaction(s) Facility (3 sources) Bee/Wasp/Ant venom; Translations: [Bee Stings] Drug allergy Anaphylaxis (disorder) [facility] [place] (4 sources) patient allergy list reviewed by nurse or physicia Propensity to adverse reactions Comment:Done [facility] Other (1 source) No Known Medication Allergies; Translations: [No Known Medication Allergies] Propensity to adverse reactions (disorder) [facility] Repository Medications Current Medications Medication Drug Class(es) Dates Sig (Normalized) Sig (Original) amLODIPine 5 mg oral tablet (12 sources) Dihydropyridine Calcium Channel Ashely Start: 08-20-2023 take 1 tablet by mouth once daily Amlodipine Active 0 .ROUTE .COMPLEX August 20, 2023 6:00pm Take 1 tablet by mouth once daily Start: 08-16-2022 End: 08-20-2023 take 5 mg by mouth once daily Amlodipine Discontinued 5 MG PO Daily August 20, 2023 12:00am August 20, 2023 6:00pm benazepril hydrochloride 40 mg oral tablet (12 sources) Angiotensin Converting Enzyme Inhibitor Start: 08-22-2023 take 1 tablet by mouth once daily Benazepril Active 0 .ROUTE .COMPLEX August 22, 2023 12:51pm Take 1 tablet by mouth once daily for 90 days Start: 08-16-2022 End: 08-22-2023 take 40 mg by mouth once daily Benazepril Discontinued 40 MG PO Daily August 22, 2023 12:00am August 22, 2023 12:51pm [id number] 0.3 ml EPINEPHrine 1 mg/ml auto-injector (4 sources) alpha-Adrenergic Agonist, beta-Adrenergic Agonist, Catecholamine Start: 10-04-2022 EpiPen 2-Anibal 0.3 MG/0.3ML as directed Injection once as needed for bee sting for 30 days Sep, Active hydrocortisone 10 mg/ml / neomycin 3.5 mg/ml / polymyxin b [id number] unt/ml otic suspension (8 sources) Aminoglycoside Antibacterial, Polymyxin-class Antibacterial, Corticosteroid Start: 08-09-2022 Neomycin-Polymyxi n-HC [id number] 4 drops into affected ear Otic qid [...] (1 source) Nocturia Episodic Hyperplasia of prostate (13 sources) Nocturia due to benign prostatic hypertrophy; Translations: [Benign prostatic hyperplasia with lower urinary tract symptoms] Chronic Other aftercare (1 source) Other fci (current) drug therapy; Translations: [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] Onset: 02-28-2018 Episodic Other and unspecified benign neoplasm (2 sources) History of polyp of colon; Translations: [Personal history of adenomatous and serrated colon polyps] Onset: 01-30-2024 Episodic Other diseases of kidney and ureters (4 sources) Disorder of kidney and/or ureter; Translations: [Other specified disorders of kidney and ureter] Onset: 04-30-2016 Chronic Other ear and sense organ disorders (1 source) Acute reactive otitis externa, right ear Episodic Other liver diseases (5 sources) Steatosis of liver; Translations: [Fatty (change of) liver, not elsewhere classified] 01-15-2024 Chronic Other nutritional; endocrine; and metabolic disorders (6 sources) Body mass index 30+ - obesity; Translations: [Body mass index 36.0-36.9, adult] Onset: 05-09-2016 08-29-2022 Chronic Other nutritional; endocrine; and metabolic disorders (6 sources) Morbid obesity; Translations: [Morbid (severe) obesity [...] colon] Onset: 03-10-2016 Episodic Residual codes; unclassified (15 sources) Obstructive sleep apnea syndrome; Translations: [Obstructive sleep apnea (adult) (pediatric)] 08-16-2022 Chronic Residual codes; unclassified (2 sources) Obstructive sleep apnea (adult) (pediatric); Translations: [Obstructive sleep apnea (adult)(pediatric)] Chronic Residual codes; unclassified (2 sources) Family history of cancer of colon 08-25-2022 Episodic Residual codes; unclassified (1 source) Family history of malignant neoplasm of digestive organ; Translations: [Family history of malignant neoplasm of digestive organs] Onset: 01-30-2024 Episodic Unclassified (2 sources) Patient encounter status 08-29-2022 Past or Other [...] Name Value Interpretation Reference Range Facil ity Ambulatory Visit Summaryon 1 03-31-2023 Ambulatory Visit Summary Ambulatory Visit Summary FLORA JAMES :1970 Visit Date:01/30/2024 Ambulatory Visit Instructions Your Diagnosis Personal history of adenomatous and serrated colon polyps Family history of colon cancer in father Your Care Team Attending Physician - Shantanu HARRIS MD Primary Care Physician - ERNESTO VICTOR BERNARDO This Is Your Medications List Contact prescribing physician if questions or concerns amlodipine (amLODIPine 5 mg Tab) benazepril (benazepril 40 mg oral tablet) Procedures Performed Colonoscopy (09/20/2022), Cholecystectomy (2016), Colonoscopy (2009), Excision of cyst, Excision of dermatofibroma. Discharge Vitals Heart Rate (Peripheral) 76 Respiratory Rate 16 Blood Pressure 126/86 Height 193 cm Height 76 in Weight 142 kg Weight 313.056 lb BMI 38.12 Medications What How Much When Instructions Unchanged amlodipine (amLODIPine 5 mg Tab) 1 Tablets By Mouth Every day Contact prescribing physician if questions or concerns Unchanged benazepril (benazepril 40 mg oral tablet) 1 Tablets By Mouth Every day Contact prescribing physician if questions or concerns Allergies Bee Stings (Anaphylaxis) Problems Ongoing - Any problem that you are currently receiving treatment for. BMI 38.0-38.9,adult BPH (benign prostatic hyperplasia) Essential hypertension Family history of colon cancer in father Hypercholesterolemia Morbid obesity EULALIO (obstructive sleep apnea) Personal history of adenomatous and serrated colon polyps Screening for malignant neoplasm of colon Steatosis of liver Patient Survey You may receive a survey via text or e-mail asking about your office visit. Please share your experience with us by completing your survey. We appreciate your feedback and thank you for choosing us for your care. Normal [facility] HERPES SIMPLEX 1/2 IGMon HSV, IgM I/II Combination 1.34 Ratio Critically high 0.00-0.90 [facility] Comment on above: Result Comment: Nega tive <0.91 Equivocal 0.91 - 1.09 Positive >1.09 Performed By: #### H SVIGM ####[facility] [address] [place] [address] HERPES SIMPLEX 1/2 IGGon HSV 1 IgG, Type Spec 16.60 index Critically high 0.00-0.90 [facility] Comment on above: Result Comment: Nega tive <0.91 Equivocal 0.91 - 1.09 Positive >1.09 Note: Negative indicates no antibodies detected to HSV-1. Equivocal may suggest early infection. If clinically appropriate, retest at later date. Positive indicates antibodies detected to HSV-1. Performed By: #### H SV IGG ####[facility] [address] [place] [address] HSV 2 IgG Type Spec 10.10 index Critically high 0.00-0.90 [facility] Comment on above: Result Comment: Nega tive <0.91 Equivocal 0.91 - 1.09 Positive >1.09 Note: Negative indicates no antibodies detected to HSV-2. Equivocal may suggest early infection. If clinically appropriate, retest at later date. Positive indicates antibodies detected to HSV-2. Performed By: #### H SV IGG ####[facility] [address] [place] [address] LIPID PROFILEon 02-25-2018 CHOL-HDL RATIO NORM SEE BELOW Normal [facility] Comment on above: Result Comment: 3.3 - 4.4 LOW RISK 4.4 - 7.1 AVERAGE RISK 7.1 - 11.0 MODERATE RISK >11.0 HIGH RISK Performed By: #### A ST, LIPID, BMP, ALT ####[facility] [address] [place], [place] [address]Ibfiqz [place] Cholesterol in HDL mass conc > or = 60 mg/dl - LOW CARDIOVASCULAR RISK <40 mg/dl - HIGH CARDIOVASCULAR RISK Normal [facility] Comment on above: Performed By: #### A ST, LIPID, BMP, ALT ####[facility] [address] [place], [place] [address]Stpmtc [place] Cholesterol in HDL mass conc 37 mg/dL Normal [facility] Comment on above: Performed By: #### A ST, LIPID, BMP, ALT ####[facility] [address] [place], [place] [address]Kdyyhl [place] Cholesterol in LDL mass conc 119.0 mg/dL Normal [facility] Comment on above: Performed By: #### A ST, LIPID, BMP, ALT ####[facility] [address] [place], [place] [address]Mdziit [place] Cholesterol in LDL mass conc SEE BELOW Normal [facility] Comment on above: Result Comment: <100 mg/dl OPTIMAL 100 - 129 mg/dl NEAR OR ABOVE OPTIMAL 130 - 159 mg/dl BORDERLINE HIGH 160 - 189 mg/dl HIGH >190 mg/dl VERY HIGH Performed By: #### A ST, LIPID, BMP, ALT ####[facility] [address] [place], [place] [address]Vexaig [place] Cholesterol mass conc 216 mg/dL Critically high <=200 [facility] Comment on above: Performed By: #### A ST, LIPID, BMP, ALT ####[facility] [address] [place], [place] [address]Xvixuj [place] Cholesterol.total/C holesterol in HDL mass ratio 5.8 {ratio} Normal [facility] Comment on above: Performed By: #### A ST, LIPID, BMP, ALT ####[facility] [address] [place], [place] [address]Vqsprd [place] Triglyceride mass conc 300 mg/dL Critically high <=150 [facility] Comment on above: Performed By: #### A ST, LIPID, BMP, ALT ####[facility] Akkv[address] [place] VLDL CALC 60.0 mg/dL Normal [facility] Comment on above: Performed By: #### A ST, LIPID, BMP, ALT ####[facility] Y[address] [place] PROF CHEM 8 (BAS METB)on Anion gap 3 molar conc 13.0 mmol/L Normal [facility] Comment on above: Performed By: #### A ST, LIPID, BMP, ALT ####[facility] [address] [place] [address] [place] Calcium mass conc 9.1 mg/dL Normal 8.4-10.2 The [facility] Comment on above: Performed By: #### A ST, LIPID, BMP, ALT ####[facility] [address] [place] [address] [place] Chloride molar conc 101 mmol/L Normal 98-107 [facility] Comment on above: Performed By: #### A ST, LIPID, BMP, ALT ####[facility] [address] [place] [address] [place] CO2 molar conc 31.3 mmol/L Critically high 22.0-30.0 [facility] Comment on above: Performed By: #### A ST, LIPID, BMP, ALT ####[facility] Jqyfbviuxd[address] [place] Creatinine mass conc 0.90 mg/dL Normal 0.66-1.25 [facility] Comment on above: Performed By: #### A ST, LIPID, BMP, ALT ####[facility] D[address]pr[address] [place] EGFR-AF MALAYSIAN >60 Normal >=60 [facility] Comment on above: Performed By: #### A ST, LIPID, BMP, ALT ####[facility] B[address]ucot[address] [place] EGFR-NON AF MALAYSIAN >60 Normal >=60 [facility] Comment on above: Performed By: #### A ST, LIPID, BMP, ALT ####[facility] [address] [place] [id number] [place] Glucose mass conc 110 mg/dL Critically high 74-106 [facility] Comment on above: Performed By: #### A ST, LIPID, BMP, ALT ####[facility] Fmrd[address]ixb[address] [place] Potassium molar conc 3.3 mmol/L Critically low 3.4-5.0 [facility] Comment on above: Performed By: #### A ST, LIPID, BMP, ALT ####[facility] Mxjpfxz[address] [place] Sodium molar conc 142 mmol/L Normal 137-145 [facility] Comment on above: Performed By: #### A ST, LIPID, BMP, ALT ####[facility] Zeq[address]ixi[address] [place] Urea nitrogen mass conc 12.0 mg/dL Normal 9.0-20.0 [facility] Comment on above: Performed By: #### A ST, LIPID, BMP, ALT ####[facility] Esawjfvoct[address] [place] Urea nitrogen/Creatinine mass ratio 13.3 mg/mg Normal [facility] Comment on above: Performed By: #### A ST, LIPID, BMP, ALT ####[facility] [address] [place] [id number] [place] SGOTon 02-25-2018 AST enzyme act/vol 35 U/L Normal 17-59 [facility] Comment on above: Performed By: #### A ST, LIPID, BMP, ALT ####[facility] [address] [place] [id number] [place] SGPTon 02-25-2018 ALT enzyme act/vol 64 U/L Normal 21-72 [facility] Comment on above: Performed By: #### A ST, LIPID, BMP, ALT ####[facility] [address]nr[address] [place] [id number] [place] UA (CLEAN/CATCH) YEAST DISTILLER/MICRO I F IND.on 02-25-2018 BILIRUBIN Negative Normal NEGATIVE [facility] Comment on above: Performed By: #### U PERRY KIDDRO ####[facility] S[address]lj[address] [place] BLOOD TRACE-LYSED Normal NEGATIVE [facility] Comment on above: Performed By: #### U EH KIDDICRO ####[facility] X[address] [place] CLARITY CLEAR Normal [facility] Comment on above: Performed By: #### PERRY RORO ####[facility] Y[address]hl[address] [place] COLOR LT. YELLOW Normal YELLOW [facility] Comment on above: Performed By: #### PERRY RORO ####[facility] G[address]xi[address]bt[address] [place] GLUCOSE Negative Normal NEGATIVE [facility] Comment on above: Performed By: #### PERRY RORO ####[facility] Bl[address]old[address]kg[address] [place] KETONES Negative Normal NEGATIVE [facility] Comment on above: Performed By: #### PERRY RORO ####[facility] Tqdojoyfot[address] [place] LEUKOCYTES Negative Normal NEGATIVE [facility] Comment on above: Performed By: #### EH ROICRO ####[facility] R[address]opjx[address]xw[address] [place] NITRITE Negative Normal NEGATIVE [facility] Comment on above: Performed By: #### PERRY RORO ####[facility] Iytotjwcnu[address] [place] pH 7.0 Normal 5-9 [facility] Comment on above: Performed By: #### PERRY RORO ####[facility] Ahiew[address]khp[address] [place] PROTEIN TRACE Normal [facility] Comment on above: Performed By: #### PERRY RORO ####[facility] Fabjimnshx[address] [place] SPEC GRAVITY 1.015 Normal 1.005-<=1.025 [facility] Comment on above: Performed By: #### EH ROICRO ####[facility] Iq[address] [place] UR MICRO IND INDICATED Normal [facility] Comment on above: Performed By: #### AMIRA RO ####[facility] X[address]prp[address] [place] UROBILINOGEN 0.2 EU/dl Normal [facility] Comment on above: Performed By: #### AMIRA RO ####[facility] [address]ul[address] [place] URINE MICROSCOPIC ONLYon BACTERIA TRACE Normal NONE SEEN [facility] Comment on above: Performed By: #### PERRY RORO ####[facility] S[address]ft[address] [place] CAST NONE SEEN Normal NONE SEEN [facility] Comment on above: Performed By: #### AMIRA RO ####[facility] J[address]amwvsdbh[address] [place] CRYSTALS NONE SEEN Normal NONE SEEN [facility] Comment on above: Performed By: #### EH ROICRO ####[facility] L[address]fs[address] [place] CULTURE NOT INDICATED Normal [facility] Comment on above: Performed By: #### EH ROICRO ####[facility] [address]vhwktzafi[address] [place] EPITHELIAL CELLS RARE Normal [facility] Comment on above: Performed By: #### AMIRA RO ####[facility] [address] [place], [place] [address]Xffeyi [place] INR Coag RelTime (Bld) 2-5 Normal 0-2 [facility] Comment on above: Performed By: #### U AMIRA KIDD ####[facility] [address]40[address] [place], [place] [address]Ubjsgb [place] MUCOUS TRACE Normal NONE SEEN [facility] Comment on above: Performed By: #### U AMIRA KIDD ####[facility] [address]45[address] [place], [place] [address]Warygj [place] WBC 2-5 Normal NONE SEEN [facility] Comment on above: Performed By: #### U AMIRA KIDD ####[facility] [address] [place], [place] [address]Soplai [place] Vital Signs Date Time Vital Sign Value Performing Clinician Facility 01-30-2024 15:31-0500 Blood Pressure Location Shantanu JAKEYoucruit [facility] 01-30-2024 15:31-0500 Diastolic blood pressure 86 mm[Hg] [facility] 01-30-2024 15:31-0500 Heart rate 76 /min [facility] 01-30-2024 15:31-0500 Respiratory rate 16 /min Shantanu JOSEPHYoucruit [facility] 01-30-2024 15:31-0500 Systolic blood pressure 126 mm[Hg] Shantanu [facility] 10-05-2023 08:42-0400 Body height 195.58 cm [facility] 10-05-2023 08:42-0400 Body mass index (BMI) [Ratio] 37.1 kg/m2 [facility] 10-05-2023 08:42-0400 Body weight 142.03 kg [facility] 10-05-2023 08:42-0400 Diastolic blood pressure 89 mm[Hg] [facility] 10-05-2023 08:42-0400 Heart rate 76 /min [facility] 10-05-2023 08:42-0400 Respiratory rate 12 /min [facility] 10-05-2023 08:42-0400 Systolic blood pressure 139 mm[Hg] [facility] 08-29-2022 13:09-0400 Blood Pressure Location Shantanu EcTownUSAL [facility] [place] 08-29-2022 13:09-0400 Diastolic blood pressure 98 mm[Hg] Shantanu NILL [facility] [place] 08-29-2022 13:09-0400 Heart rate 76 /min Shantanu NILL [facility] [place] 08-29-2022 13:09-0400 Respiratory rate 16 /min Shantanu NILL [facility] [place] 08-29-2022 13:09-0400 Systolic blood pressure 150 mm[Hg] Shantanu NILL [facility] [place] 08-09-2022 09:00-0400 Body height 193.04 cm Bernardo Ball Other [facility] Other 08-09-2022 09:00-0400 Body mass index (BMI) [Ratio] 39.17 kg/m2 Bernardo Ball Other [facility] Other 08-09-2022 09:00-0400 Body weight 145.97 kg Bernardo Ball Other [facility] Other 08-09-2022 09:00-0400 Diastolic blood pressure 134 mm[Hg] Bernardo Ball Other [facility] Other 08-09-2022 09:00-0400 Respiratory rate 12 /min Bernardo Ball Other [facility] Other 08-09-2022 09:00-0400 Systolic blood pressure 186 mm[Hg] Bernardo Ponce Other [facility] Other Encounters Encounter Date Encounter Type Care Provider Facility Start: 01-30-2024 End: 01-30-2024 ambulatory Shantanu Burr TIA Facility:[facility] Start: 01-30-2024 End: 01-30-2024 Patient encounter procedure Shantanu Burr NILElyse Haris [facility] [place] Start: 10-05-2023 End: 10-05-2023 ambulatory [facility] Work Phone: Start: 10-05-2023 End: 10-05-2023 Encounter for general adult medical examination without abnormal findings [facility] Start: 10-05-2023 End: 10-05-2023 Patient encounter procedure [facility] Work Phone: Start: 03-02-2023 End: 03-02-2023 ambulatory Bernardo Ponce Other [facility] Other Start: 03-02-2023 Telephone encounter Bernardo Ponce [facility] Start: 10-04-2022 End: 10-04-2022 ambulatory Bernardo Ponce Other [facility] Other Start: 10-04-2022 Telephone encounter Bernardo Ponce [facility] Start: 08-30-2022 End: 08-30-2022 ambulatory Bernardo Ponce Other [facility] Other Start: 08-30-2022 Telephone encounter Bernardo Ponce [facility] Start: 08-29-2022 End: 08-29-2022 Patient encounter procedure Shantanu Burr JAKEL [facility] Nill[facility]Said [place] Start: 08-09-2022 End: 08-09-2022 ambulatory Bernardo Ponce Other [facility] Other Start: 08-09-2022 Encounter for genera l adult medical examination without abnormal findings Bernardo Ponce [facility] Start: 08-09-2022 Periodic preventive med est patient 40-64yrs Bernardo Ponce [facility] Start: 08-09-2022 Telephone encounter Bernardo Ponce [facility] Start: 06-09-2021 Adult health examination Bernardo Ponce Other [facility] Other Start: 02-25-2018 End: 02-26-2018 Patient encounter procedure BERNARDO PONCE Facility: Procedures Date Procedure Procedure Detail Performing Clinician Start: 09-20-2022 Colonoscopy Shantanu NI LL Start: 03-12-2016 Cholecystectomy Shantanu JOSEPHL Start: 01-06-2015 General examination of patient Bernardo Ponce Other Start: 03-12-2009 Colonoscopy Shantanu NI LL Depression screening Erica Ponce Other Excision of cyst Shantanu JOSEPH L Comment on above: posterior neck Excision of dermatofibroma M ichmiriam JOSEPHL Comment on above: left upper extremity , shoulder, right thigh Plan of Treatment Date Care Activity Detail Author Comprehensive metabo lic 2000 panel - Serum or Plasma [facility] enter [facility] Immunizations Immunization Date Immunization Notes Care Provider Fa saji 06-27-2020 COVID-19 Vaccine Pfi zer - Documentation Purposes Only Bernardo Ponce Other [facility] Comment on above: Result Comment: 2023: [id number] 06-06-2020 COVID-19 Vaccine Pfi zer - Documentation Purposes Only Bernardo Ponce Other [facility] Comment on above: Result Comment: 2023: [id number] Payers Date Payer Category Payer Unknown [id number] 1970 Unknown [id number] 1970 Unknown [id number] 1957 Unknown [id number] Private Health [facility] [employer] [id number] Unknown [id number] Social History Date Type Detail Facility Sex Assigned At [facility] Start: 08-29-2022 End: 01-30-2024 Tobacco smoking status Never smoked tobacco (finding) [facility] [place] Tobacco smoking status Never Gener al [facility] [place] Start: 1970 Sex Assigned At Male F [facility] Functional Status Date Assessment Result Facility 01-30-2024 Functional Status N/A [facility] [place] 08-29-2022 Functional Status N/A General [facility] Clinical Notes 08-09-2022 to 01-30-2024 Note Date & Type Note Facility 01-30-2024 Note General Surgery Offi ce/Clinic Note Chief Complaint consultation for colonoscopy HPI Staff 53 year old male presents on consultation for surveillance colonoscopy. Last colonoscopy completed 09/2022 with sigmoid villous adenoma. Father with history of colon cancer, diagnosed late 40's. Denies abdominal or rectal pain. No rectal bleeding or change in bowel habits. Denies nausea or vomiting. No unexplained weight loss. History of Present Illness 53 yo male with h/o htn, hypercholesterolemia, EULALIO, presents for surveillance colonoscopy; patient had 1.7 cm pedunculated polyp removed from sigmoid colon in piecemeal fashion 09/2022, fmhx of colon cancer in patient's father, dx in his 40's; abdominal operations significant for cholecystectomy; no asa or NSAID use; no tobacco use; no fmhx of IBD. Review of Systems PHQ Score Initial Depression Screen Score: 0 SCORE ROS - Provider Constitutional: no fever, no sweats, no weight loss. Eyes: no glasses, no blurred vision, no visual loss. ENMT: no dentures, no hoarseness, no swallowing difficulties, no hearing loss, no ear infection(s), no nose bleeds. Cardiovascular: normal blood pressure, no [...] & Measurements HR: 76(Peripheral) RR: 16 BP: 126/86 HT: 76 in HT: 193 cm WT: 142 kg WT: 313.056 lb BMI: 38.12 HEENT: normal conjunctiva, sclera clear, no scleral [...] bs Lymphatic: no cervical adenopathy, no supraclavicular adenopathy Musculoskeletal: normal gait, digits and nails without infection, nodes, cyanosis, clubbing. Skin: no rashes, no lesions, no ulcers, no subcutaneous nodules, induration. Psychiatric/Neuro: oriented to time, place, person, judgement normal, affect appropriate for age, insight intact, no focal deficits. Tests: , review of old records completed , Discussed surgical options, risks, and possible complications with patient. Assessment/Plan 1. Personal history of adenomatous and serrated colon polyps (Z86.0101: Personal history of adenomatous and serrated colon polyps) plan colonoscopy under anesthesia, informed consent obtained. 2. Family history of colon cancer in father (Z80.0: Family history of malignant neoplasm of digestive organs) see # 1 Follow-up No qualifying data available Problem List/Past Medical History Ongoing BMI 38.0-38.9,adult BPH (benign prostatic hyperplasia) Essential hypertension Family history of colon cancer in father Hypercholesterolemia Morbid obesity EULALIO (obstructive sleep apnea) Personal history of adenomatous and serrated colon polyps Screening for malignant neoplasm of colon Steatosis of liver Historical No qualifying data Procedure/Surgical History Colonoscopy (09/20/2022), Cholecystectomy (2016), Colonoscopy (2009), Excision of cyst, Excision of dermatofibroma. Medications amLODIPine 5 mg Tab, 5 mg= 1 tab(s), Oral, Daily benazepril 40 mg oral tablet, 40 mg= 1 tab(s), Oral, Daily Allergies Bee Stings (Anaphylaxis) Social History Alcohol - Denies Alcohol Use, 08/29/2022 Never., 01/29/2024 Substance Abuse - Denies Substance Abuse, 08/29/2022 Never., 01/29/2024 Tobacco Never (less than 100 in lifetime) Tobacco Use:. Never Smokeless Tobacco Use:., 01/30/2024 Family History Hypertension: Mother. Primary malignant neoplasm of colon: Father. Immunizations Vaccine Date Status Comments SARS-CoV-2 (COVID-19) mRNA BNT-162b2 vax 06/27/2020 Recorded 2024-01-15: [id number] SARS-CoV-2 (COVID-19) mRNA BNT-162b2 vax 06/06/2020 Recorded 2024-01-15: [id number] [facility] Comment on above: Result Comment: Elec tronically Signed By: TIA PETE, Shantanu Lackey\Date and Time Signed: 01/30/24 16:38 EST 10-04-2022 Evaluation note Encounter Date Diagnosis Assessment Notes Sep, Bee sting allergy (ICD-10 - Z91.030) [facility] Other 07-26-2023 Evaluation note* Encounter Date Diagnosis Assessment Notes Treatment Notes Treatment Clinical Notes Sep, Primary hypertension (ICD-10 - I10) [facility] Other 05-31-2023 Evaluation note* Encounter Date Diagnosis [...] use, the patient reduces the risk for MD, CVA, HTN, cardiac dysrhythmias and sudden cardiac [...] (ICD-10 - Z12.11) Refer for screening colonoscopy [facility] Other 05-31-2023 Evaluation note* Encounter Date Diagnosis Assessment Notes Treatment Notes Treatment Clinical Notes July, Acute reactive otitis externa of right ear (ICD-10 - H60.551) [facility] Other 05-31-2023 Evaluation note* Encounter Date Diagnosis Assessment Notes Treatment Notes Treatment Clinical Notes July, Primary hypertension (ICD-10 - I10) [facility] Other Evaluation + Plan note No data available for this section General [facility] Evaluation noteNo InformationNort GVISP 1 Other Evaluation note* Diagnosis Onset Date Resolution Status Benign prostatic hyperplasia with lower urinary tract symptoms acute Hypercholesterolemia acute Hypertension acute Obesity acute EULALIO (obstructive sleep apnea) acute Screening PSA (prostate specific antigen) noneactive Wellness examination noneact [facility] Work Phone: [facility] general Narrative - Reported* Type Description Date Medical History Primary hypertension Medical History Benign prostatic hyp erplasia with lower urinary tract symptoms Medical History Obstructive sleep apnea Medical History Elevated cholesterol Surgical History COLONOSCOPY 2009 Surgical History CHOLECYSTECTOMY 2017 Hospitalization History SEE SURGICAL [facility] Other History general Narrative - Reported* Type Description Date Medical History Primary hypertension Medical History Benign prostatic hyp erplasia with lower urinary tract symptoms Medical History Obstructive sleep apnea Medical History Elevated cholesterol Surgical History COLONOSCOPY 2009 Surgical History CHOLECYSTECTOMY 2016 Surgical History Colonoscopy w/ polypectomy, rep eat 3 yrs 09/2022 Hospitalization History SEE SURGICAL [facility] Other Hospital Discharge instructions No data available for this section General [facility] Progress note No data available for this section [facility] Reason for referral (narrative)* Reason *FU 08/16 Referral for screening colonoscopy Diagnosis 1 Screening for colon cancer (Z12.11) Referral Organization [facility] [place] [facility] Referring Provider First Name Bernardo Referring Provider Last Name Ernesto Referring Provider Specialty Internal Me dicine Referred Organization [facility] Referred Provider Shantanu Harris Referred Address [address] [place], [place],[address] Referred Provider Specialty Surgery Referral Priority Routine General Notes Referral for screeni ng colonoscopy in an asymptomatic, high risk patient. He denies change in appetite, weight or bowel habits. He denies N/V, dysphagia, melena or hematochezia. Isabel Krishnamurthy 08/09/2022 02:38:29 PM >received today, attachments made, referral faxed Clinical Notes F: [id number] [facility] Other Summary Purpose Family History No Family History Records Found Relationship Condition Age at Onset Recorded Date/T benedicto mother Hypertension Unknown High blood cholesterol Unknown Advance Directives No Advanced Directives Records Found Advance Directive Response Recorded Date/ Time Advance [...] and content) DATE CREATED AUTHOR 03/03/2018 [facility] DATE CREATED AUTHOR AUTHOR'S ORGANIZ ATION 05/31/2024 [facility] REASON FOR VISIT (unrecogniz ed section and content) wellnessATBRefillLab Results No InformationNo InformationBP readings/EPI penslabs Patient Care team informatio n (unrecognized section and content) Team Status: Active Member Role Status Dates Bernardo Ponce DO Primary Care Provider Active Team Status: Inactive Member Role Status Dates Bernardo Ponce DO Primary Care Provide r, Attending Provider [...] BE BASED ON THE PRIMARY CLINICAL RECORDS. [facility]. provides no warranty or guarantee of the accuracy or completeness of information in this document.
[2024-06-18 06:38] VITALS: BP 172/110; PULSE 97; TEMP 36.7; O2SAT 99; BMI 39.0
[2024-06-18] MEDS: 0.9 % SODIUM CHLORIDE 500 ML 50 ML IV (07:06)
[2024-06-18] MEDS: LACTATED RINGER'S SOLUTION 1,000 ML 50 ML IV (07:50)
[2024-06-18 07:51] VITALS: BP 109/87; PULSE 79; O2SAT 94
[2024-06-18 08:06] VITALS: BP 126/75; PULSE 82; O2SAT 94
== END 2024-06-18 08:22 | disposition home or self-care (01) ==
PROVIDERS: PCP Internal Medicine; Visit Provider Surgery
PROC: (CPT 00811; principal; 2024-06-18 07:30)
DX: Z09 Encounter for follow-up examination after completed treatment for conditions other than malignant neoplasm (principal); D12.5 Benign neoplasm of sigmoid colon; D12.4 Benign neoplasm of descending colon; Z86.0101 Personal history of adenomatous and serrated colon polyps; Z80.0 Family history of malignant neoplasm of digestive organs; I10 Essential (primary) hypertension; E66.01 Morbid (severe) obesity due to excess calories; Z68.38 Body mass index [BMI] 38.0-38.9, adult; Z90.49 Acquired absence of other specified parts of digestive tract
CPT/HCPCS: 00811; 45385; 88305; J2704

== ENCOUNTER 2025-02-13 07:18 | Outpatient (OUT) | payer OTHER, SELFPAY ==
--- OUTSIDE RECORDS SUMMARY | 2009-07-28 19:00 | XMS_ITS | Continuity of Care Document ---
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 Name Role Phone Hao Davila Unavailable Unavailable Procedures Procedure Date OFFICE/OUTPATIENT VISIT, EST HEP A/HEP B VACC, ADULT IM OFFICE/OUTPATIENT VISIT, EST HEP A/HEP B VACC, ADULT IM HEP A/HEP B VACC, ADULT IM OFFICE/OUTPATIENT VISIT, EST HEP A/HEP B VACC, ADULT IM Advance Directives Directive Yes / No Effective Date File Name No Information Encounters Encounter Description Practice Location Reason(s) For Visit Diagnoses Date Provider Providers Copied on Encounter OFFICE/OUTPATI ENT VISIT, [facility], [address], [place], [id number], [place] tel:[phone] [facility] No Information Joyce Barfield. [address], [place], [id number], [place]. tel:[phone] [facility], [address], [place], [id number], [place] tel:[phone] [facility] No Information Joyce Barfield. [address], [place], [id number], [place]. tel:[phone] OFFICE/OUTPATI ENT VISIT, [facility], [address], [place], [id number], [place] tel:[phone] [facility] No Information Joyce Barfield. [address] [place] [address], [id number], [place]. tel:[phone] Family History Family Member Type Diagnosis Age At Onset No Information Payers Payer name Insurance type Covered green party ID Authoriza tion(s) No Information Social History Type Description Quantity Date Captured Comments Sex Male Smoking Status No Information Chief Complaint And Reason For Visit No Information Reason For Referral Reason For Referral No Information History Of Present Illness Encounter Date Complaint History Of Prese nt Illness No Information Functional Status Date Functional Assessmen t No Information Instructions Date Instruction Additional Infor mation No Information Assessments Type Assessment Date No Information Patient Care Teams Name Effective Dates (start - stop) Status Members No Information
--- OUTSIDE RECORDS SUMMARY | 2025-02-13 07:22 | XMS_ITS | CCD ---
Author Organization [facility] [place] [facility] Care Team Providers Care Copper Miner Name Role Phone BERNARDO OROZCO Unavailable Unavailable BALL, BERNARDO Unavailable Unavailable BALL, BERNARDO Unavailable Unavailable BALL, BERNARDO Unavailable Unavailable Ball, Bernardo Unavailable BERNARDO OROZCO Primary Care Physician NON STAFF Attending Provider Unavailable Shantanu HARRIS Attending Unavailable NILShantanu Pappas Attending Unavailable NON STAFF Attending Unavailable NON STAFF Admitting Unavailable Allergies Allergy ClassificationReported Allergen(s)Allergy TypeDate of OnsetReaction(s) Facility (3 sources)Bee/Wasp/Ant venom; Translations: [Bee Stings]Drug allergyAnaphylaxis (disorder)General Surgery [place] (4 sources)patient allergy list reviewed by nurse or physiciaPropensity to adverse sadyshrry19-90-6906Tarhbum:[employer] Other (1 source)No Known Medication Allergies; Translations: [No Known Medication Allergies]Propensity to adverse reactions (disorder)[facility] Medications Current Medications MedicationDrug Class(es)DatesSig (Normalized)Sig (Original)benazepril hydrochloride 40 mg oral tablet (16 sources)Angiotensin Converting Enzyme InhibitorStart: 08-22-2023 End: 82-71-1035zeou 1 tablet by mouth once dailyBenazepril 40 mg tablet Active 0 .ROUTE .COMPLEX 90 May 23, 2024 1:26pm Take 1 tablet by mouth once daily Start: 08-16-2022 End: 02-19-0931zvra 1 tablet by mouth once dailyBenazepril 40 mg tablet Discontinued 40 MG PO Daily August 22, 2023 12:00am August 22, 2023 12:51pm [id number] 0.3 ml EPINEPHrine 1 mg/ml auto-injector (4 sources)alpha-Adrenergic Agonist, beta-Adrenergic Agonist, Catecholamine Start: 65-72-5837SzqGbj 2-Anibal 0.3 MG/0.3ML as directed Injection once as needed for bee sting for 30 days Sep, Activehydrocortisone 10 mg/ml / neomycin 3.5 mg/ml / polymyxin b 16164 unt/ml otic suspension (8 sources)Aminoglycoside Antibacterial, Polymyxin-class Antibacterial, CorticosteroidStart: 55-14-8253Ntfkbmut-Polymyxin-HC 3.5-29165-4 4 drops into affected ear Otic qid for 7 days July, Active Completed/Discontinued Medications MedicationDrug Class(es)DatesSig (Normalized)Sig (Original)amLODIPine 5 mg oral tablet (17 sources)Dihydropyridine Calcium Channel BlockerStart: 08-20-2023 End: 43-55-3533luvz 1 tablet by mouth once dailyAmlodipine 5 mg tablet Discontinued 0 .ROUTE .COMPLEX 90 May 23, 2024 1:26pm May 23, 2024 1: 26pm Take 1 tablet by mouth once dailyStart: 08-16-2022 End: 70-31-8952iutc 1 tablet by mouth once dailyAmlodipine 5 mg tablet Discontinued 5 MG PO Daily August 20, 2023 12:00am August 20, 2023 6:00pm hydroCHLOROthiazide 25 mg oral tablet (6 sources)Thiazide DiureticStart: 10-05-2023 End: 84-72-3487jsoy 1 tablet by mouth once dailyHydrochlorothiazide 25 mg tablet Discontinued 25 MG PO Daily October 05, 2023 12:00am October 05, 2023 8:42amStart: 59-46-6093mgbd 1 tablet by mouth every twenty-four hourshydroCHLOROthiazide 25 MG 1 tablet in the morning Orally Once a day for 30 days Sep, Active Problems Active Problems Problem ClassificationProblemDateDocumented DateEpisodic/ChronicAllergic reactions (6 sources)Allergy to bee venom; Translations: [Bee allergy status]Episodic Disorders of lipid metabolism (20 sources)Mixed hyperlipidemia; Translations: [Hypercholesterolemia]Onset: 69-33-8108OkuqxtqRzocrohkctudam and diverticulitis (4 sources)Diverticulosis of colon; Translations: [Diverticulosis of colon] Onset: 36-74-9670AexdnqhZgdyipwtn hypertension (20 sources)Essential (primary) hypertension; Translations: [Essential hypertension]Onset: 42-17-0608ZbcyexoZjvgayhukmmbo symptoms and ill-defined conditions (1 source)NocturiaEpisodicHyperplasia of prostate (14 sources)Nocturia due to benign prostatic hypertrophy; Translations: [Benign prostatic hyperplasia with lower urinary tract symptoms]ChronicOther aftercare (1 source)Other prison (current) drug therapy; Translations: [OTH CORRECTION CURRENT DRUG THERAPY]Onset: 51-71-1098UtcavrxdQmqor and unspecified benign neoplasm (2 sources)History of polyp of colon; Translations: [Personal history of adenomatous and serrated colon polyps]Onset: 14-14-8096YvmqhldyFrlav diseases of kidney and ureters (4 sources)Disorder of kidney and/or ureter; Translations: [Other specified disorders of kidney and ureter]Onset: 26-78-9364WezpalaIrvjo ear and sense organ disorders (1 source)Acute reactive otitis externa, right earEpisodicOther liver diseases (5 sources)Steatosis of liver; Translations: [Fatty (change of) liver, not elsewhere classified]06-75-2327WtsltuwKbvva nutritional; endocrine; and metabolic disorders (6 sources)Body mass index 30+ - obesity; Translations: [Body mass index 36.0- 36.9, adult]Onset: 322600-62-3152YpjavfjZzujz nutritional; endocrine; and metabolic disorders (6 sources)Morbid obesity; Translations: [Morbid (severe) obesity due to excess calories]Onset: 375073-33-7717AoueahwYjkre nutritional; endocrine; and metabolic disorders (6 sources)Obesity; Translations: [Obesity, unspecified]23-43-2760JfoczlvRssuy nutritional; endocrine; and metabolic disorders (4 sources)Obese class II; Translations: [Body mass index 38.0-38.9, adult] Onset: 90-62-9511WhxajjdJvxbu nutritional; endocrine; and metabolic disorders (1 source)Obesity, unspecified; Translations: [Obesity, unspecified]10-05-2023 ChronicOther nutritional; endocrine; and metabolic disorders (1 source)Hyperbilirubinemia; Translations: [Other disorders of bilirubin metabolism]27-95-3220HzojigpOfodu screening for suspected conditions (not mental disorders or infectious disease) (9 sources)Encounter for screening for malignant neoplasm of prostate; Translations: [Encounter for screening for malignant neoplasm of colon]Onset: 26-51-5717GhruqbuyBdagxcm on above:PSA: 0.43 - 92024Residual codes; unclassified (16 sources)Obstructive sleep apnea syndrome; Translations: [Obstructive sleep apnea (adult) (pediatric)]08-14-0425JlrlqymQmufddqq codes; unclassified (2 sources)Obstructive sleep apnea (adult) (pediatric); Translations: [Obstructive sleep apnea (adult)(pediatric)]ChronicResidual codes; unclassified (2 sources)Family history of cancer of kfakh72-01-7868CmodxsdbPdkkumip codes; unclassified (1 source)Family history of malignant neoplasm of digestive organ; Translations: [Family history of malignantneoplasm of digestive organs]Onset: 01-30-2024 EpisodicUnclassified (2 sources)Patient encounter -25-9996 Past or Other Problems Problem ClassificationProblemDateDocumented DateEpisodic/ChronicConditions associated with dizziness or vertigo (4 sources)Benign paroxysmal positional vertigo; Translations: [Benign paroxysmal positional vertigo]Onset: 68-14-8438AnnehfifCycgh diseases of kidney and ureters (4 sources)Acquired renal cystic disease; Translations: [Cyst of kidney, acquired]Onset: 22-90-6018OhsjtkozMcpfq liver diseases (4 sources)Large liver; Translations: [Hepatomegaly, not elsewhere classified] Onset: 60-24-9926PdtmxpyfGjaiq skin disorders (4 sources)Eruption; Translations: [Rash and other nonspecific skin eruption] Onset: 86-85-8977EysfoeiwNmmml skin disorders (4 sources)Sebaceous cyst; Translations: [Sebaceous cyst]Onset: 02-06-2018 EpisodicUnclassified (4 sources)Long-term current use of drug therapy; Translations: [Long-term (current) use of other medications]Onset: 08-14-2017 Results Test NameValueInterpretationReference RangeFacilityReminderson 06-24-2024 RemindersReminders From: More Davalos LPNroma Gustafson To: GSN - Clinical; Sent: 06/24/2024 07:57:49 EDT Show up: 05/19/2027 07:00:00 EST Subject: colonoscopy recall Due Date/Time: 06/19/2027 07:00:00 EDT Reminder/Recall Patient due for surveillance colonoscopy 06/19/2027 due to history of polyps. [facility] 06-18-2024L Specimen: [id number] Received: 06/18/24 Status: CARLOS Paige Num: [id number] Spec Type: Surgical Subm Dr: Shantanu Harris MD FACS Tissues: A Colon Biopsy (SIGMOID COLON POLYP) B Colon Biopsy (DISTAL SIGMOID POLYP) Procedures: ZEYNEP/Angel, Gross/Milagros L4/2 Age/ Patient Sex Location Account Attending Physician Flora James/M LABELL [id number] NON STAFF SPEC NUM: [id number] RECD: 06/18/24 STATUS: CARLOS PAIGE NUM: [id number] VANCE: 06/18/24 [facility] DR: Shantanu Harris MD FACS ENTERED: 06/18/24 [facility] DR: Tristan,Lab SPEC TYPE: Surgical DEPT: [place] ENTERED BY: [id number] RECV BY: [id number] ORDERED: HE/4, Gross/Micro L4/2 ORDERED: HE/4, Gross/Micro L4/2 Pathological Diagnosis A. Sigmoid polyp, biopsies: ? Tubular adenoma with no high-grade dysplasia. B. Distal polyp, biopsies: ? Tubular adenoma with no high-grade dysplasia. Clinical Information Sigmoid colon polyp Gross Description Part A is received in formalin labeled with the patients name, date of , and sigmoid polyp is a ma-olivares, focally erythematous, friable, 0.5 cm in greatest dimension polypoid fragment. The specimen is inked black at the apparent point of attachment, bisected, and entirely submitted in a single cassette. (1, ns, [id number] JG Part B is received in formalin labeled with the patients name, date of , and distal polyp is a ma-olivares, focally erythematous, friable, 0.8 cm in greatest dimension polypoid fragment. The specimen is inked black at the apparent point of attachment, longitudinally trisected, and entirely submitted in a single cassette. (1, ns, [id number] B) JG Specimen: [id number] Received: 06/18/24 Status: ISRAPatricia Paige Num: [id number] Spec Type: Surgical Subm Dr: Shantanu Harris MD FACS Tissues: A Colon Biopsy (SIGMOID COLON POLYP) B Colon Biopsy (DISTAL SIGMOID POLYP) Procedures: GOVIND Gross/Micro L4/2 Patient: Flora James [id number] (Continued) Specimen: [id number] Received: 06/18/24 (Continued) Signed (signature on file) Amber Casanova MD 06/19/24 1118 Specimen: [id number] Received: 06/18/24 Status: CARLOS Paige Num: [id number] Spec Type: Surgical Subm Dr: Shantanu Harris MD FACS Tissues: A Colon Biopsy (SIGMOID COLON POLYP) B Colon Biopsy (DISTAL SIGMOID POLYP) Procedures: ZEYNEPAngel Gross/Micro L4/2 Patient: Flora James [id number] (Continued) Specimen: [id number] Received: 06/18/24 (Continued) Microscopic Description Sections examined support the above rendered diagnosis. CPT Codes 41289 x 2 Specimen: [id number] Received: 06/18/24 Status: CARLOS Paige Num: [id number] Spec Type: Surgical Subm Dr: Shantanu Harris MD FACS Tissues: A Colon Biopsy (SIGMOID COLON POLYP) B Colon Biopsy (DISTAL SIGMOID POLYP) Procedures: HE/4, Gross/Micro L4/2 Patient: GilbertFlora dolan [id number] (Continued) Signed (signature on file) Amber Casanova MD 06/19/[address] [place] [address] Physician GroupAmbulatory Visit Summaryon 01-30-2024 Ambulatory Visit SummaryAmbulatory Visit Summary FLORA JAMES :1970 Visit Date:01/30/2024 Ambulatory Visit Instructions Your Diagnosis Personal history of adenomatous and serrated colon polyps Family history of colon cancer in father Your Care Team Attending Physician - TIA PETE, Shantanu Burr Primary Care Physician - ERNESTO VICTOR, BERNARDO This Is Your Medications List Contact prescribing physician if questions or concerns amlodipine (amLODIPine 5 mg Tab) benazepril (benazepril 40 mg oral tablet) Procedures Performed Colonoscopy (09/20/2022), Cholecystectomy (2016), Colonoscopy (2009), Excision of cyst, Excision ofdermatofibroma. Discharge Vitals Heart Rate (Peripheral) 76 Respiratory [...] you for choosing us for your care. [facility]HERPES SIMPLEX 1/2 IGMon 20-14-6883PDQ, IgM I/II Combination1.34 RatioCritically high0.00-0.90[facility] Medical CenterComment on above:Result Comment: Negative <0.91 Equivocal 0.91 - 1.09 Positive >1.09Performed By: #### HSVIGM ####[facility] [address] [place] [address] KarenHERPES SIMPLEX 1/2 IGGon 20-40-0227XPT 1 IgG, Type Spec16.60 indexCritically high0.00-0.90[facility] Medical CenterComment on above:Result Comment: Negative <0.91 Equivocal 0.91 - 1.09 Positive >1.09 Note: Negative indicates no antibodies detected to HSV-1. Equivocal may suggest early infection. If clinically appropriate, retest at later date. Positive indicates antibodies detected to HSV-1.Performed By: #### HSV IGG ####[facility] [address] [place] [address] KarenHSV 2 IgG Type Spec10.10 indexCritically high0.00-0.90[facility] CenterComment on above:Result Comment: Negative <0.91 Equivocal 0.91 - 1.09 Positive >1.09 Note: Negative indicates no antibodies detected to HSV-2. Equivocal may suggest early infection. If clinically appropriate, retest at later date. Positive indicates antibodies detected to HSV-2.Performed By: #### HSV IGG ####[facility] [address] [place] [address] KarenLIPID PROFILEon 50-55-1093ILKL-HDL RATIO NORMSEE BELOWNormalThe [facility] HospitalComment on above:Result Comment: 3.3 - 4.4 LOW RISK 4.4 - 7.1 AVERAGE RISK 7.1 - 11.0 MODERATE RISK >11.0 HIGH RISKPerformed By: #### AST, LIPID, BMP, ALT ####[facility] [address] [place], [place] [address]Ohwndl KarenCholesterol in HDL mass conc> or = 60 mg/dl - LOW CARDIOVASCULAR RISK <40 mg/dl - HIGH CARDIOVASCULAR RISKProMedica Bay Park HospitalCommackinac straits hospital on above:Performed By: #### AST, LIPID, BMP, ALT ####[facility] [address] [place], [place] [address]Lytlkw Becca Cholesterol in HDL mass conc37 mg/dLNoSelect Medical OhioHealth Rehabilitation HospitalComment on above: Performed By: #### AST, LIPID, BMP, ALT ####[facility] [address] [place] [id number] KarenCholesterol in LDL mass conc 119.0 mg/dLProMedica Bay Park HospitalComment on above:Performed By: #### AST, LIPID, BMP, ALT ####[facility] M[address]dcravx[address] [place], [place] [address]Qmeguj KarenCholesterol in LDL mass concSEE BELOWProMedica Bay Park HospitalComment on above:Result Comment: <100 mg/dl OPTIMAL 100 - 129 mg/dl NEAR OR ABOVE OPTIMAL 130 - 159 mg/dl BORDERLINE HIGH 160 - 189 mg/dl HIGH >190 mg/dl VERY HIGHPerformed By: #### AST, LIPID, BMP, ALT ####[facility] [address] [place], [place] [address]Fzsczq KarenCholesterol mass nccx418 mg/dLCritically high<=200The [facility] HospitalCommackinac straits hospital on above:Performed By: #### AST, LIPID, BMP, ALT ####[facility] [address] [place] [id number] KarenCholesterol.total/Cholesterol in HDL mass ratio5.8 {ratio}NormalThe [facility] on above:Performed By: #### AST, LIPID, BMP, ALT ####[facility] [address] [place] [id number] KarenTriglyceride mass vhtb143 mg/dLCritically high<=150The [facility] HospitalComment on above:Performed By: #### AST, LIPID, BMP, ALT ####[facility] Akzltqrkmv[address] KarenVLDL CALC60.0 mg/dLNormalThe [facility] HospitalComment on above: Performed By: #### AST, LIPID, BMP, ALT ####[facility] Yhyfwwwnuo[address] KarenPROF CHEM 8 (BAS METB)on 06-33-3687Jcpvj gap 3 molar conc13.0 mmol/LNormalThe [facility] HospitalComment on above:Performed By: #### AST, LIPID, BMP, ALT ####[facility] Cpfbaevkbw[address]86 [address] KarenCalcium mass conc 9.1 mg/dLNormal8.4-10.2The [facility] HospitalComment on above:Performed By: #### AST, LIPID, BMP, ALT ####[facility] I[address] [place] [address] KarenChloride molar ulpj468 mmol/LPtvtgb98-494 The [facility] HospitalComment on above:Performed By: #### AST, LIPID, BMP, ALT ####[facility] Z[address] [place] [address] KarenCO2 molar conc31.3 mmol/LCritically high22.0-30.0The [facility] Comment on above:Performed By: #### AST, LIPID, BMP, ALT ####[facility] [address] [place] [address] KarenCreatinine mass conc0.90 mg/dLNormal0.66-1.25The [facility] HospitalComment on above:Performed By: #### AST, LIPID, BMP, ALT ####[facility] Nqtssjjaym[address] KarenEGFR-AF INDONESIAN>60Normal>=60The [facility] HospitalComment on above:Performed By: #### AST, LIPID, BMP, ALT ####[facility] Urflrrlvwy[address] KarenEGFR-NON AF INDONESIAN>60Normal>=60The Grant Hospitalment on above:Performed By: #### AST, LIPID, BMP, ALT ####[facility] Dlkwnsvvgk[address] KarenGlucose mass ttte138 mg/dLCritically high 74-106The [facility] HospitalComment on above:Performed By: #### AST, LIPID, BMP, ALT ####[facility] Ozgdhacqsx23[address] KarenPotassium molar conc3.3 mmol/LCritically low3.4-5.0The [facility] on above:Performed By: #### AST, LIPID, BMP, ALT ####[facility] X[address] [place] [address] KarenSodium molar gbnk925 mmol/SEjhtlq259-204Eaa Grant Hospitalment on above:Performed By: #### AST, LIPID, BMP, ALT ####[facility] Isqducycou[address] KarenUrea nitrogen mass conc12.0 mg/dLNormal 9.0-20.0The [facility] on above:Performed By: #### AST, LIPID, BMP, ALT ####[facility] Mdsp[address]pe[address] [place] [address] KarenUrea nitrogen/Creatinine mass ratio13.3 mg/mgNormalThe [facility] HospitalCommackinac straits hospital on above:Performed By: #### AST, LIPID, BMP, ALT ####[facility] Vgxincbkxl[address] 98-75-9455KXY enzyme act/vol35 U/SVxvtvu24-03Bdb [facility] on above:Performed By: #### AST, LIPID, BMP, ALT ####[facility] Esvonjlgbh7[address] 02-25-2018 ALT enzyme act/vol64 U/INzylfl82-53Yhk [facility] HospitalComment on above: Performed By: #### AST, LIPID, BMP, ALT ####[facility] Rbanclmscj[address] MalcolmenUA (CLEAN/CATCH) PASTRY DECORATOR/MICRO IF IND.on 78-33-5783ZWNIHDNKVPdkusbxiMpnnxxTFXIBICRRrw [facility] HospitalComment on above:Performed By: #### PERRY KNIGHTRO ####[facility] [address] [place] [address] KarenBLOODTRACE-LYSEDNormalNEGATIVE [facility] HospitalComment on above:Performed By: #### AMIRA KNIGHT ####[facility] [address] [place] [address] KarenCLARITYCLEARNormalThe [facility] HospitalComment on above:Performed By: #### AMIRA KNIGHT ####[facility] [address] [place] [address] KarenCOLORLT. YELLOWNormalYELLOWOhio State University Wexner Medical CenterComment on above:Performed By: #### PERRY KNIGHTRO ####[facility] [address] [place] [address] KarenGLUCOSENegativeNormalNEGATIVEUniversity Hospitals Cleveland Medical Centerment on above:Performed By: #### AMIRA KNIGHT ####[facility] [address]xs[address] [place] [address] KarenKETONESNegativeNormalNEGATIVEMarion Hospital HospitalComment on above: Performed By: #### PERRY KNIGHTRO ####[facility] [address] [place] [address] KarenLEUKOCYTESNegativeNormalNEGATIVEOhio State University Wexner Medical CenterComment on above:Performed By: #### AMIRA KNIGHT ####[facility] Dod[address] [place] [address] KarenNITRITENegativeNormalNEGATIVEMarion Hospital HospitalComment on above: Performed By: #### AMIRA KNIGHT ####[facility] [address] [place] [address]Gerken KarenpH7.7Chxomd3-7Grl [facility] Comment on above:Performed By: #### AMIRA KNIGHT ####[facility] [address] [place] [address]Gerken KarenPROTEINTRACE NormalThe [facility] HospitalComment on above:Performed By: #### AMIRA KNIGHT ####[facility] Jitsablzvu[address] KarenSPEC GRAVITY1.726Bwkzrj8.005-<=1.025The [facility] HospitalComment on above: Performed By: #### AMIRA KNIGHT ####[facility] Mpssnhfqbm[address] KarenUR MICRO INDINDICATEDNormOhioHealth Mansfield HospitalComment on above:Performed By: #### AMIRA KNIGHT ####[facility] Wuxaxeixco[address] KarenUROBILINOGEN0.2 EU/dlNormalThe [facility] HospitalComment on above:Performed By: #### AMIRA KNIGHT ####[facility] Njgfdqsxjt4[address] KarenURINE MICROSCOPIC ONLYon 02-25-2018 BACTERIATRACENormalNONE SEENThe [facility] HospitalComment on above:Performed By: #### AMIRA KNIGHT ####[facility] Pktpqhforl[address] KarenCASTNONE SEENNormalNONE SEENOhio State University Wexner Medical CenterCommackinac straits hospital on above:Performed By: #### AMIRA KNIGHT ####[facility] Mkyleexmft60[address] KarenCRYSTALS NONE SEENNormalNONE SEENThe [facility] HospitalComment on above:Performed By: #### AMIRA KNIGHT ####[facility] Vjaruurumm[address] KarenCULTURENOT INDICATEDNormalThe [facility] HospitalComment on above:Performed By: #### AMIRA KNIGHT ####[facility] [address]se[address] [place] [id number] KarenEPITHELIAL CELLSRARENormalOhio State University Wexner Medical CenterComment on above:Performed By: #### AMIRA KNIGHT ####[facility] Neomfcqurd[address] KarenINR Coag RelTime (Bld)8-1Kmzssp9-3NyvOhio State University Wexner Medical CenterComment on above: Performed By: #### AMIRA KNIGHT ####[facility] Cpidjvctks[address] KarenMUCOUSTRACENormalNONE SEENOhio State University Wexner Medical CenterComment on above:Performed By: #### AMIRA KNIGHT ####[facility] Ojhezawlzh[address] KarenWBC2-5NormalNONE [facility] SouthComment on above:Performed By: #### AMIRA KNIGHT ####[facility] [address]ks[address] [place], [place] [address]naseem Hudson Vital Signs Date TimeVital SignValuePerforming LzuaicygmHnzpkojj37-24-1187 15:31-0500Blood Pressure LocationMichael NILL [phone]-ZlovdTogus [facility] Center11-20-2024 15:31-0500Diastolic blood xkbdypij03 mm[Hg]Shantanu NILL [phone]-VmxtfTogus Va Medical Center11-20-2024 15:31-0500Heart rate76 /minMichael NILL [phone]-TlsyyTogus Va [facility] Center11-20-2024 15:31-0500Respiratory rate16 /minMichael NILL [phone]-JcvjvTogus Va Medical Center11-20-2024 15:31-0500Systolic blood hmskglla677 mm[Hg]Shantanu NILL [phone]-Uenvm General Surgery Msemuxbl74-64-9608 08:42-0400Body .[address] [facility]07-26-2024 08:42-0400Body mass index (BMI) [Ratio]37.1 kg/y2YzzfelpsaMercy Health St. [facility] Hospital07-26-2024 08:42-0400Body rsfeft860.[address] [facility] 10-05-2023 08:42-0400Diastolic blood gxuhqbpo17 mm[Hg][facility]07-26-2024 08:42-0400Heart rate76 /[facility] 10-05-2023 08:42-0400Respiratory rate12 /[facility] 10-05-2023 08:42-0400Systolic blood fcmyjywy781 mm[Hg][facility]06-20-2023 13:09-0400Blood Pressure LocationMichael NILL [facility] Qzijcinf31-96-4751 13:09-0400Diastolic blood jiapkrbt10 mm[Hg]Shantanu NILL [facility] Surgery Lappenlq54-89-0093 13:09-0400Heart rate 76 /minMichael NILL [facility] Surgery Farhqfeq28-62-8577 13:09-0400 Respiratory rate16 /minMichael NILL [facility] Surgery Josnaboq88-09-8672 13:09-0400Systolic blood giyfpzri030 mm[Hg]Shantanu NILL [facility] Surgery Cyspgsbj11-52-9444 09:00-0400Body kikwki592.04 cmBenjamin Ball Other [facility] Other 05-31-2023 09:00-0400Body mass index (BMI) [Ratio] 39.17 kg/i6SgjhuuelBernardo Orozco Other [employer] Other 05-31-2023 09:00-0400Body dhtogd627.97 kgBemacie Orozco Other [employer] Other 05-31-2023 09:00-0400Diastolic blood nunkvpkt005 mm[Hg]Bernardo Orozco Other [facility] Other 05-31-2023 09:00-0400Respiratory rate12 /minBemacie Orozco Other [facility] Other 05-31-2023 09:00-0400Systolic blood eztkzrgk654 mm[Hg] Bernardo Orozco Other [facility] Other Encounters Encounter DateEncounter TypeCare ProviderFacilityStart: 06-18-2024 End: 38-98-5072yrfitvbdyrTGEThe [facility] Work Phone: Start: 06-18-2024 End: 78-88-2023Bpbwzlya [facility]-LAB Path Spec Tristan HospStart: 06-18-2024 End: 98-33-0347nlwpgcqzlzPreeyld R NILLFacility:CD:[id number]: 01-30-2024 End: 71-72-2406ntpshktucxAxfugiu R NILLFacility:GS BellevueStart: 01-30-2024 End: 65-00-6537Svgyari encounter procedureMichael R NILL [phone]-Tioow General Surgery Tristan Start: 10-05-2023 End: 86-98-1992oknpibzinwAicstvbirOhioHealth [facility] Work Phone: Start: 10-05-2023 End: 04-64-5329Rliytepel for general adult medical examination without abnormal findingsMorrow County Hospitaltart: 10-05-2023 End: 77-99-1918Vdqsrjd encounter procedureAtrium Health [facility] Work Phone: Start: 03-02-2023 End: 17-49-9511ahkqyzmxlnOsobtsso Ball Other [employer] Other Start: 89-47-5163Xsylxskrv encounterBenjennifer Orozco Medical ClinicStart: 10-04-2022 End: 54-94-5983yfciyxwekaRuermvhh Ball Other [facility] Other Start: 83-71-1463Gbpnrztcy encounterBenjennifer Orozco Medical ClinicStart: 08-30-2022 End: 76-10-2308jdlcqerfhlRaagedmc Ball Other [facility] [facility] Other Start: 86-65-6569Adspnnwir encounterBenjennifer Orozco Medical ClinicStart: 08-29-2022 End: 70-89-6334Xvspnhk encounter procedureMichael R NILL General Surgery Nill/Said Tristan Start: 08-09-2022 End: 83-75-1761lqulrsmyfsHvgodgww Ball Other [employer] Other Start: 82-51-6592Vlbvrsnvv for general adult medical examination without abnormal findingsBemacie Orozco Medical ClinicStart: 69-63-8094Lxayxcqh preventive med est patient 40-64yrsBemacie Orozco Medical ClinicStart: 73-40-6093Cstbysjqp encounterBenjennifer Orozco Medical ClinicStart: 41-78-2541Blqws health examinationBemacie Orozco Other [facility] Other Start: 02-25-2018 End: 01-13-1659Kjvjmku encounter procedureBERNARDO OROZCOFacility:H1 Procedures DateProcedureProcedure DetailPerforming ClinicianStart: 27-01-8549Ftkzuawhvzl Shantanu NILL Start: 90-18-4321MzkmqgwhleiwvvmKwruljp NILL Start: 70-73-9891Bffugpr examination of patientBernardo Orozco Other Start: 27-27-4987UovaksncwleAcotmfr NILL Depression screeningBernardo Orozco Other Excision of cystMichael NILL Comment on above:posterior neckExcision of dermatofibromaMichael NILL Comment on above:left upper extremity, shoulder, right thigh Plan of Treatment DateCare ActivityDetailAuthorComprehensive metabolic 2000 panel - Serum or PlasmaAdventHealth [facility] Immunizations Immunization DateImmunizationNotesCare LihltnrkQlgsxeek38-14-7261KKMKG-38 Vaccine Pfizer - Documentation Purposes OnlyBernardo Orozco Other [facility] HospitalComment on above: Result Comment: 2024-01-15: [id number] Vaccine Pfizer - Documentation Purposes OnlyBernardo Orozco Other [facility] HospitalComment on above: Result Comment: 2024-01-15: [id number] Payers DatePayer CategoryPayerPolicy [id number] [id number] [id number] [id number] Health Insurance [employer] Insurance [id number] [id number] [id number] Social History DateTypeDetailFacilitySex Assigned At [facility]tart: 08-29-2022 End: 05-46-7496Thnaohs smoking statusNever smoked tobacco (finding)General [facility] smoking statusNeverGeneral Surgery [facility] Hospitaltart: 87-89-1265Veg Assigned At [facility] HospitalTobacc smoking status NHISUnknown if ever smokedBarberton Citizens Hospital Work Phone: Start: 52-35-6283CexLeku (finding)[facility] Functional Status VljsZsxybvnyrsCivduaJssoacul68-64-0853Uvltjwdblm StatusN/[facility] Surgery Vqpdkqqa27-92-2789Upsstbuxyr StatusN/AGeneral Surgery [place] Clinical Notes 08-09-2022 to 01-30-2024 Note Date & LfvuYmzdCvryllen82-91-2449 NoteGeneral Surgery Office/Clinic Note Chief Complaint consultation for colonoscopy HPI Staff 53 year old male presents on consultation for surveillance colonoscopy. Last colonoscopy completed 09/2022 with sigmoid villous adenoma. Father with history of colon cancer, diagnosed late 40's. Denies abdominal or rectal pain. No rectal bleeding or change in bowel habits. Denies nausea or vomiting.No unexplained weight loss. History of Present Illness 53 yo male with h/o htn, hypercholesterolemia, EULALIO, presents for surveillance colonoscopy; patient had 1.7 cm pedunculated polyp removed from sigmoid colon in piecemeal fashion 09/2022, fmhx of colon cancer in patient's father, dx in his 40's; abdominal operations significant for cholecystectomy; noasa or NSAID use; no tobacco use; no [...] (2016), Colonoscopy (2009), Excision of cyst, Excision ofdermatofibroma. Medications amLODIPine 5 mg Tab, 5 mg= [...] mRNA BNT-162b2 vax 06/06/2020 Recorded 2024-01-15: [id number] [facility] HospitalComment on above:Result Comment: Electronically Signed By: TIA PETE, Shantanu Lackey\Date and Time Signed: 01/30/24 16:38 EST 10-04-2022 Evaluation note* Encounter Date Diagnosis Assessment Notes Treatment Notes Treatment Clinical Notes Sep, Bee sting allergy (ICD-10 - Z91. 030) [employer] Other 07-26-2023 Evaluation note* Encounter Date Diagnosis Assessment Notes Treatment Notes Treatment Clinical Notes Sep, Primary hypertension (ICD-10 - I 10) [employer] Other 05-31-2023 Evaluation note* Encounter Date Diagnosis Assessment Notes Treatment Notes Treatment Clinical Notes July, Primary hypertension (ICD-10 - I 10) This patient is instructed to consume a healthy, low-fat, low-salt diet. They are also encouraged to continue exercise to achieve/maintain a normal BMI. Patient is instructed on home BP measurements: - rest for 5 minutes w/o talking- positioned w/ feeton floor and arm supported- average best 2/3 readings w/ goal < 135-85 July,Wellness examination (ICD-10 - Z00.00)Healthy diet and exercise. Reviewed age-appropriate preventive testing recommended. July,Elevated cholesterol (ICD-10 - E78.00)Instructed on diet and exercise with continued statin therapy.Discussed the beneficial effects of lo wering cholesterol in reducing the risk for cerebrovascular and cardiovascular disease. July,OSA (obstructive sleep apnea) (ICD-10 - G47.33)This patient is aware of the benefits associated with EULALIO: With continued use, the patient reduces t he risk for [place], CVA, HTN, cardiac dysrhythmias and sudden cardiac deaths.The patient is also aware of the association between EULALIO and morning headaches, daytime somnolence, fatigue and obesity, whichalso has been improved with continued use.The patient is compliant with treatment, wearing the equipment every night for greater than 4 hours.The patient is instructed to continue use of the CPAP forOSA treatment. July,enign prostatic hyperplasia with lower urinary tract symptoms (ICD- 10 - N40.1)Symptoms tolerable July,Nocturia (ICD-10 - R35.1) July,Screening PSA (prostate specific antigen) (ICD-10 - Z12.5)Yearly RUBI and PSA July,Screening for colon cancer (ICD-10 - Z12.11)Refer for screening colonoscopy [employer] [facility] Other 05-31-2023 Evaluation note* Encounter Date Diagnosis Assessment Notes Treatment Notes Treatment Clinical Notes July, Acute reactive otitis externa of right ear (ICD-10 - H60.551) [employer] Other 05-31-2023 Evaluation note* Encounter Date Diagnosis Assessment Notes Treatment Notes Treatment Clinical Notes July, Primary hypertension (ICD-10 - I 10) [employer] Other Evaluation + Plan note No data available for this section General Surgery [place] Evaluation noteNo InformationNort [facility] Healthcare Network Other Evaluation note* Diagnosis Onset Date Resolution Status Benign prostatic hyperplasia with lower urinary tract symptoms acuteHypercholesterolemiaacuteHypertensionacuteObesityacuteOSA (obstructive sleep apnea)acuteScreening PSA (prostate specific antigen)noneactiveWellness examinationnoneactive [facility] Work Phone: Evaluation noteNo assessment information available [facility] Work Phone: Hisveui general Narrative - Reported* Type Description Date Medical History Primary hypertension Medical HistoryBenign prostatic hyperplasia with lower urinary tract symptoms Medical HistoryObstructive sleep apneaMedical HistoryElevated cholesterol Surgical PgkzmurRAXIXSQDAOT4399Igjidbkv MfdmzsuMQMAISEZKRYDLTH8671 Hospitalization HistorySEE SURGICAL [employer] Other Hisptct general Narrative - Reported* Type Description Date Medical History Primary hypertension Medical HistoryBenign prostatic hyperplasia with lower urinary tract symptoms Medical HistoryObstructive sleep apneaMedical HistoryElevated cholesterol Surgical RxtuuotTABUYGPTVBA7989Yuylfsex HvagriiCFMMVDYQLOEUVXO8115Gpppmzat HistoryColonoscopy w/ polypectomy, repeat 3 yrs09/2022Hospitalization HistorySEE SURGICAL [employer] Other Hospital Discharge instructions No data available for this section General Surgery [place] Progress note No data available for this section General Surgery [place] Reason for referral (narrative)* Reason *FU 08/16 Referral for screening colonoscopy Diagnosis 1 Screening for colon cancer (Z12.11) Referral Organization [facility] hernandez Referring Provider First Name Bernardo Referring Provider Last Name Ernesto Referring Provider Specialty Internal Me dicine Referred Organization [facility] Referred Provider Shantanu Harris Referred Address [address], [place],[address] Referred Provider Specialty Surgery Referral Priority Routine General Notes Referral for screeni ng colonoscopy in an asymptomatic, high risk patient. He denies change in appetite, weight or bowel habits. He denies N/V, dysphagia, melena or hematochezia. DangfelibertoIsabel 08/09/2022 02:38:29 PM >received today, attachments made, referral faxedClinical NotesF: [id number] [employer] Other Summary Purpose Family History No Family History Records Found Relationship Condition Age at Onset Recorded Date/T benedicto mother Hypertension Unknown High blood cholesterolUnknown Advance Directives No Advanced Directives Records Found Advance Directive Response Recorded Date/ Time Advance Directives No October 04 8:28am Chief Complaint and Reason for Visit Chief Complaint wellness Reason for Visit Benign prostatic hyp erplasia with lower urinary tract symptoms Hypercholesterolemia Hypertension Obesity EULALIO (obstructive sleep apnea) Screening PSA (prostate specific antigen) Wellness examination Chief Complaint Admit Date Unknown June 18, 2024 7:51 am Additional Source Comments (unrecognized sect ion and content) No Status Records FoundNo Status Records FoundNo Status Records Found INFORMATION SOURCE (unrecogn ized section and content) DATE CREATED AUTHOR 03/03/2018 [facility] DATE CREATED AUTHOR AUTHOR'S ORGANIZ ATION 06/25/2024 [facility] DATE CREATED AUTHOR AUTHOR'S ORGANIZ ATION 09/04/2024 [facility] REASON FOR VISIT (unrecogniz ed section and content) wellnessATBRefillLab Results No InformationNo InformationBP readings/EPI penslabs Patient Care team informatio n (unrecognized section and content) Team Status: Active Member Role Status Dates Bernardo Orozco DO Primary Care Provider Active Team Status: Inactive Member Role Status Dates Bernardo Orozco , Primary Care Provide r, Attending Provider Active Start: October 05, 2023 End: October 05, 2023 Team Status: Inactive Member Role Status Dates NON STAFF Attending Provider Active Start: Ap 2024 End: June 18, 2024 Goals (unrecognized section and content) Goals may [...] BE BASED ON THE PRIMARY CLINICAL RECORDS. [facility] [employer] [facility]. provides no warranty or guarantee of the accuracy or completeness of information in this document.
[2025-02-13 07:59] LABS: Hematocrit 47.2 % (42.0-54.0); Hemoglobin 16.3 g/dL (14.0-18.0); Immature Granulocytes Abs Auto 0.01 10^3/uL (0.00-0.03); Immature Granulocytes Pct Auto 0.1 % (0.0-0.5); Lymphocytes Absolute Auto 2.0 10^3/uL (1.2-3.8); Mean Corpuscular HGB Conc 34.5 g/dL (29.9-35.2); Mean Corpuscular Hemoglobin 30.8 pg (25.9-34.0); Mean Corpuscular Volume 89.1 fL (80.0-94.0); Platelet Count 232 10^3/uL (150-450); Red Blood Count 5.30 10^6/uL (4.70-6.10); White Blood Count 7.7 10^3/uL (4.0-11.0)
[2025-02-13 09:05] LABS: Alanine Aminotransferase 39 U/L (16-63); Albumin Globulin Ratio 1.2; Albumin Level 4.1 g/dL (3.4-5.0); Alkaline Phosphatase 56 U/L (46-116); Anion Gap 11.6; Aspartate Amino Transferase 27 U/L (15-37); Blood Urea Nitrogen 17.0 mg/dL (7.0-18.0); Calcium 9.0 mg/dL (8.5-10.1); Carbon Dioxide 31.7 mmol/L (21.0-32.0); Chloride 104 mmol/L (98-107); Cholesterol 217 mg/dL (<=200); Estimated GFR (African America >60 (>=60 mL/min/1.73m^2); Estimated GFR (Non-African Ame >60 (>=60 mL/min/1.73m^2); Globulin 3.5 g/dL; Glucose 118 mg/dL (74-106); HDL Cholesterol 41 mg/dL (40-60); Potassium 3.3 mmol/L (3.5-5.1); Sodium 144 mmol/L (136-145); Total Protein 7.6 g/dL (6.4-8.2); Triglycerides 175 mg/dL (<=150); VLDL CHOLESTEROL 35.0 mg/dL
== END 2025-02-13 07:19 | disposition home or self-care (01) ==
LOC: LAB 07:20
PROVIDERS: PCP Internal Medicine; Visit Provider Internal Medicine
DX: Z00.00 Encounter for general adult medical examination without abnormal findings (principal); Z12.5 Encounter for screening for malignant neoplasm of prostate
CPT/HCPCS: 36415; 80053; 80061; 85025; G0103